=== PATIENT | female | born 1965 | race Caucasian/White ===

== ENCOUNTER 2021-11-18 17:42 | Inpatient (IN) | payer MEDICAID, OTHER ==
[~2021-11-18] VITALS: Ht 167.6 cm; Wt 109.3 kg
[2021-11-18 18:49] LABS: Basophils # (auto) 0 10 ^3/uL (0-0.2); Basophils % (auto) 0.2 % (0.0-2.0); Eosinophils # (auto) 0.3 10 ^3/uL (0-0.8); Eosinophils % (auto) 2.7 % (0.0-7.0); Hemoglobin 13.1 g/dL (12.2-16.2); Lymphocytes % (auto) 33.6 % (10.0-50.0); Mean Corpuscular Hgb Conc. 31.8 g/dL (32.0-36.0); Mean Corpuscular Volume 91.1 fL (80.0-100.0); Monocytes % (auto) 8.5 % (0.0-12.0); Neutrophils # (auto) 6.5 10 ^3/uL (1.6-8.6); Nucleated Red Blood Cells % 0.1 %; Red Blood Cells 4.51 10^6/uL (4.0-5.20); Red Cell Distribution Width 13.9 % (11.8-14.3); White Blood Cell 11.9 10^3/uL (4.4-10.8)
[2021-11-18 18:56] LABS: Albumin 4.1 g/dL (3.4-5.0); BUN/Creatinine Ratio 11.9; Calcium 8.9 mg/dL (8.5-10.1); Magnesium 1.9 mg/dL (1.6-2.6); Potassium 3.6 mmol/L (3.5-5.1)
[2021-11-18 18:59] LABS: Bilirubin, Total 0.2 mg/dL (0.2-1.0); Total Protein 6.8 g/dL (6.4-8.2)
[2021-11-18] MEDS ORDERED: MAGNESIUM SULFATE 1GM/100ML 100 ML IV ONE (21:15)
[2021-11-18] MEDS ORDERED: dilTIAZem 25 MG/5 ML VIAL IV ONE ×2 (21:15→21:30)
[2021-11-18] MEDS ORDERED: dilTIAZem HCL 50 MG/10 ML VIAL IV ONE ×2 (21:30)
[2021-11-18] MEDS ORDERED: MAGNESIUM SULFATE 100 ML IV ONE (22:00)
[2021-11-18] MEDS ORDERED: AMIODARONE HCL 150 MG in D5W 5% 100 ML IV ONE (22:00)
[2021-11-18] MEDS ORDERED: ASPirin 325 MG TAB PO ONE (22:00)
[2021-11-18 22:02] LABS: Urine Bacteria FEW /hpf (None Seen); Urine Blood Negative /uL (Negative); Urine Specific Gravity 1.006 (1.001-1.035); Urine WBC 1 /hpf (0 - 5)
[2021-11-18] MEDS ORDERED: AMIODARONE 450mg/250ml AE 250 ML IV SCH (22:15)
[2021-11-18] MEDS ORDERED: AMIODARONE HCL (50 MG/ ML) 3 ML VIAL IV ONE (22:27)
[2021-11-18] MEDS ORDERED: ADENOSINE 6 MG/2 ML INJ IV ONE (23:04)
[2021-11-18] MEDS ORDERED: ESMOLOL HCL (10MG/ML) 10 ML VIAL IV ONE (23:45)
[2021-11-19] MEDS ORDERED: METOPROLOL TARTRATE 1MG/1ML-5ML VIAL IV ONE (00:30)
[2021-11-19] MEDS ORDERED: SODIUM CHLORIDE 0.9% 1,000 ML IV ONE (00:30)
[2021-11-19] MEDS ORDERED: NITROGLYCERIN 0.4 MG SL TAB SL PRN (02:30)
[2021-11-19] MEDS: SODIUM CHLORIDE 0.9% 1,000 ML IV SCH ×3 (02:30→22:50)
[2021-11-19] MEDS ORDERED: ONDANSETRON HCL 4 MG/2 ML VIAL IV PRN (02:30)
[2021-11-19] MEDS ORDERED: LORazepam 0.5 MG TAB PO PRN (02:30)
[2021-11-19] MEDS ORDERED: hydrALAZINE HCL 10 MG TAB PO PRN (02:30)
[2021-11-19] MEDS ORDERED: ACETAMINOPHEN 325 MG TAB PO PRN (02:30)
[2021-11-19] MEDS ORDERED: ZOLPIDEM TARTRATE 5 MG TAB PO PRN (02:30)
[2021-11-19] MEDS ORDERED: AMIODARONE 450mg/250ml AE 250 ML IV SCH ×3 (04:15→22:15)
[2021-11-19 04:58] LABS: Basophils # (auto) 0.1 10 ^3/uL (0-0.2); Basophils % (auto) 1.2 % (0.0-2.0); Eosinophils # (auto) 0.3 10 ^3/uL (0-0.8); Eosinophils % (auto) 3.9 % (0.0-7.0); Hematocrit 37.4 % (36.0-46.0); Hemoglobin 12.5 g/dL (12.2-16.2); Lymphocytes # (auto) 2.5 10 ^3/uL (0.4-5.4); Lymphocytes % (auto) 33.4 % (10.0-50.0); Mean Corpuscular Hemoglobin 29.7 pg (28.0-32.0); Mean Corpuscular Hgb Conc. 33.4 g/dL (32.0-36.0); Mean Corpuscular Volume 88.8 fL (80.0-100.0); Monocytes # (auto) 0.8 10 ^3/uL (0-1.3); Monocytes % (auto) 10.4 % (0.0-12.0); Neutrophils # (auto) 3.9 10 ^3/uL (1.6-8.6); Neutrophils % (auto) 51.1 % (37.0-80.0); Red Blood Cells 4.21 10^6/uL (4.0-5.20); Red Cell Distribution Width 13.8 % (11.8-14.3); White Blood Cell 7.6 10^3/uL (4.4-10.8)
[2021-11-19 05:17] LABS: Calcium 8.3 mg/dL (8.5-10.1); Magnesium 2.5 mg/dL (1.6-2.6); Potassium 3.8 mmol/L (3.5-5.1)
[2021-11-19 05:21] LABS: BUN/Creatinine Ratio 16.5
[2021-11-19] MEDS ORDERED: FENO160T8 PO (05:25)
[2021-11-19] MEDS ORDERED: METF-370 PO (05:25)
[2021-11-19] MEDS ORDERED: ASPI-543 PO (05:25)
[2021-11-19] MEDS ORDERED: LEVO150T10 PO (05:25)
[2021-11-19] MEDS ORDERED: MELA3TAB27 PO (05:25)
[2021-11-19] MEDS ORDERED: DOCU-80 PO (05:25)
[2021-11-19] MEDS ORDERED: IBUP800T27 PO (05:25)
[2021-11-19] MEDS ORDERED: GABA300C10 PO (05:25)
[2021-11-19] MEDS ORDERED: CHOL20007 OR (05:25)
[2021-11-19] MEDS ORDERED: HYDR-4798 PO (05:25)
[2021-11-19] MEDS ORDERED: ENAL2.5T7 PO (05:25)
[2021-11-19] MEDS ORDERED: BACL10TA PO (05:25)
[2021-11-19] MEDS ORDERED: ICOS1CAP PO (05:25)
[2021-11-19] MEDS ORDERED: ATOR20TA PO (05:25)
[2021-11-19 08:30] VITALS: BP 107/72
[2021-11-19] MEDS: LISINOPRIL 5 MG TAB PO SCH (09:17)
[2021-11-19] MEDS: DOCUSATE SOD 100 MG CAP PO SCH (09:17)
[2021-11-19] MEDS ORDERED: POTASSIUM CHL 20 Meq TABLET PO ONE (09:30)
[2021-11-19] MEDS ORDERED: CLOPIDOGREL BISULFATE 75 MG TAB PO SCH (10:00)
[2021-11-19] MEDS ORDERED: METOPROLOL TARTRATE 25 MG TAB PO SCH (10:00)
[2021-11-19] MEDS ORDERED: AMIODARONE HCL 200 MG TAB PO SCH (10:00)
[2021-11-19] MEDS ORDERED: dilTIAZem HCL 180MG ER CAP PO ONE (10:00)
[2021-11-19] MEDS ORDERED: ASPirin 81 mg TAB PO SCH (10:00)
[2021-11-19] MEDS: ENOXAPARIN SOD 60 MG/0.6 ML SYRINGE SC SCH ×2 (10:28→22:16)
[2021-11-19] MEDS ORDERED: NICOTINE 7MG/24HR TOPICAL PATCH TD SCH (10:45)
[2021-11-19] MEDS ORDERED: MELA1TAB14 PO (11:39)
[2021-11-19] MEDS ORDERED: METF-916 PO (11:39)
[2021-11-19 12:10] LABS: Amphetamine Screen, Urine NEGATIVE (NEGATIVE); Barbiturate Scree,Urine NEGATIVE (NEGATIVE); Benzodiazephine Screen, Urine NEGATIVE (NEGATIVE); Cannabinoid Screen, Urine NEGATIVE (NEGATIVE); Cocaine Screen, Urine NEGATIVE (NEGATIVE); Opiate Scree,Urine NEGATIVE (NEGATIVE); Phencyclidine Screen, Urine NEGATIVE (NEGATIVE)
[2021-11-19 13:16] VITALS: BP 119/85
[2021-11-19] MEDS: NICOTINE 21MG/24 HR TOPICAL PATCH TD SCH (13:50)
[2021-11-19] MEDS ORDERED: AMIODARONE HCL 150 MG in D5W 5% 100 ML IV ONE (16:00)
[2021-11-19 17:10] VITALS: BP 116/82
[2021-11-19 17:38] LABS: INR 0.97 (0.9-1.15); Partial Thromboplastin Time 21.5 sec (24.6-33.4)
[2021-11-19] MEDS ORDERED: MIDAZOLAM HCL 2MG/2ML 2ml VIAL (1mg/ml) IV ONE (18:15)
[2021-11-19] MEDS ORDERED: LIDOCAINE VISCOUS 2% 15ML UD MT ONE (18:15)
[2021-11-19] MEDS ORDERED: MIDAZOLAM HCL 2MG/2ML 2ml VIAL (1mg/ml) ONE (18:52)
[2021-11-19] MEDS ORDERED: fentaNYL CITRATE 100 MCG/2 ML VL ONE (18:52)
[2021-11-19 20:00] VITALS: BP 114/72
[2021-11-19] MEDS ORDERED: ATORVASTATIN 20 MG TAB PO SCH (22:00)
[2021-11-20] MEDS: SODIUM CHLORIDE 0.9% 1,000 ML IV SCH (02:30)
[2021-11-20 05:00] VITALS: BP 130/82
[2021-11-20 08:00] VITALS: BP 102/75
[2021-11-20 09:00] VITALS: BP 116/80
[2021-11-20] MEDS: DOCUSATE SOD 100 MG CAP PO SCH (10:00)
[2021-11-20] MEDS ORDERED: AMIODARONE HCL 200 MG TAB PO SCH (10:00)
[2021-11-20] MEDS ORDERED: APIXABAN 5 MG TAB PO SCH (10:00)
[2021-11-20] MEDS ORDERED: dilTIAZem HCL 180MG ER CAP PO SCH (10:00)
[2021-11-20] MEDS ORDERED: NICOTINE 21MG/24 HR TOPICAL PATCH TD SCH (10:00)
[2021-11-20] MEDS: NICOTINE 21MG/24 HR TOPICAL PATCH TD SCH (10:16)
[2021-11-20] MEDS: LISINOPRIL 5 MG TAB PO SCH (10:16)
[2021-11-20 13:00] VITALS: BP 104/68
[2021-11-20 14:00] VITALS: BP 179/95
[2021-11-20 15:25] VITALS: BP 132/74
[2021-11-20] MEDS ORDERED: ATORVASTATIN 20 MG TAB PO SCH (22:00)
== END 2021-11-20 15:50 | disposition home or self-care (01) | DRG 201 ==
LOC: ER 17:42 → TELE 11-19 02:21 → TELE-CENTR 11-19 06:00
PROVIDERS: ADMIT Hospitalist; ATTEND Internal Medicine Nephrology
PROC: B24BZZ4 Ultrasonography of Heart with Aorta, Transesophageal (ICD-10-PCS; principal; 2021-11-19)
PROC: 5A2204Z Restoration of Cardiac Rhythm, Single (ICD-10-PCS; 2021-11-19)
DX: I48.20 Chronic atrial fibrillation, unspecified (principal); I21.A1 Myocardial infarction type 2; E11.9 Type 2 diabetes mellitus without complications; E03.9 Hypothyroidism, unspecified; E66.9 Obesity, unspecified; E78.5 Hyperlipidemia, unspecified; Z20.822 Contact with and (suspected) exposure to COVID-19; I10 Essential (primary) hypertension; Z79.84 Long term (current) use of oral hypoglycemic drugs; Z88.6 Allergy status to analgesic agent; Z72.0 Tobacco use
CPT/HCPCS: 36415; 71045; 80048; 80053; 80061; 80307; 81001; 83036; 83735; 83880; 84443; 84484; 85025; 85379; 85610; 85730; 86850; 86900; 86901; 92960; 93005; 93306; 93312; 96365; 96367; 96375; 99152; G0378; J0153; J2250; J7060

== ENCOUNTER 2024-08-14 12:27 | Inpatient (IN) | payer MEDICAID ==
[~2024-08-14] VITALS: Ht 167.6 cm; Wt 93.6 kg
[~2024-08-14 12:27] MED LIST: ATOR20TA PO; CHOL20007 OR; CIPR-173 PO; DOCU-80 PO; FENO160T PO; GABA-1250 PO; HYDR-4798 PO; LEVO150T10 PO
[2024-08-14] MEDS: SODIUM CHLORIDE 0.9% 1,000 ML IV ONE (12:45)
--- NOTE | 2024-08-14 12:48 | ED.PDOC ---
History of Present Illness HPI Comments 59-year-old female presents to the ED with a chief complaint of dizziness, SOB, and burning with urination. Patient mentions that she has chronic UTIs and is currently experiencing dizziness with burning upon urination. Patient mentions that she also has chronic lower back pain and is unsure if its a UTI or just back pain. Time Seen by MD: 12:40 Primary Care Provider: ANAMIKA Okeefe Notes: Medications, Allergies Allergies: Coded Allergies: Morphine (Verified Allergy, Unknown, 11/18/21) Home Meds Active Scripts Ciprofloxacin Hcl (Cipro) 500 Mg Tab, 1 TAB PO BID, #14 TAB Prov:ZEN PEREZ MD 06/09/23 Reported Medications Cholecalciferol (VITAMIN D3) 2,000 Unit Tab, 2000 UNIT OR DAILY, TAB 11/19/21 Docusate Sodium (Stool Softener) 100 Mg Cap, 100 MG PO HS, CAP 11/19/21 Hydrocodone-Acetaminophen (Hydrocodone Bitartrate/AC 10-325 mg) 1 Tab Tab, 1 TAB PO TIDP PRN for SEVERE PAIN (7-10 PAIN SCALE), TAB 11/19/21 Levothyroxine Sodium (Levothyroxine Sodium) 150 Mcg Tab, 150 MCG PO QAM for 30 Days 11/19/21 Atorvastatin Calcium (Lipitor) 20 Mg Tab, 1 TAB PO HS, #90 TAB 1 Refill 11/19/21 Fenofibrate (Fenofibrate) 160 Mg Tab, 1 TAB PO DAILY, #30 TAB 5 Refills 11/19/21 Gabapentin (Gabapentin) 300 Mg Cap, 300 MG PO TID for 30 Days, MG 11/19/21 Information Source: Patient Mode of Arrival: Ambulatory Severity: Moderate Timing: Days Duration: Since onset Prehospital treatment: None Past Medical History PAST MEDICAL HISTORY: DM, High Lipids, HTN, Thyroid Surgical History: Hysterectomy ICU RN History: No Pertinent ICU RN History Family History Family History: Reviewed,noncontributory to illness Social History Smoker: Cigarettes Alcohol: Denies ETOH Use Drugs: Marijuana Lives In: Home Constitutional: denies: chills, diaphoresis, fatigue, fever, malaise, sweats, weakness, others EENTM: denies: blurred vision, double vision, ear bleeding, ear discharge, ear drainage, ear pain, ear ringing, eye pain, eye redness, hearing loss, mouth pain, mouth swelling, nasal discharge, nose bleeding, nose congestion, nose pain, photophobia, tearing, throat pain, throat swelling, voice changes, others Respiratory: reports: shortness of breath; denies: cough, hemoptysis, orthopnea, SOB at rest, SOB with excertion, stridor, wheezing, others Cardiovascular: denies: chest pain, dizzy spells, diaphoresis, Dyspnea on exertion, edema, irregular heart beat, left arm pain, lightheadedness, palpitations, PND, syncope, others Gastrointestinal: denies: abdomen distended, abdominal pain, blood streaked bowels, constipated, diarrhea, dysphagia, difficulty swallowing, hematemesis, melena, nausea, poor appetite, poor fluid intake, rectal bleeding, rectal pain, vomiting, others Genitourinary: reports: burning; denies: abnormal vagina bleeding, dyspareunia, dysuria, flank pain, frequency, hematuria, incontinence, pain, , vagina discharge, urgency, others Neurological: reports: dizziness; denies: fainting, headache, left sided numbness, left sided weakness, numbness, paresthesia, pre-existing deficit, right sided numbness, right sided weakness, seizure, speech problems, tingling, tremors, weakness, others Musculoskeletal: denies: back pain, gout, joint pain, joint swelling, muscle pain, muscle stiffness, neck pain, others Integumetry: denies: bruises, change in color, change in hair/nails, dryness, laceration, lesions, lumps, rash, wounds, others Allergic/Immunocompromised: denies: Difficulty Healing, Frequent Infections, Hives, Itching, others Hematologic/Lymphatic: denies: anemia, blood clots, easy bleeding, easy bruising, swollen glands, others Endocrine: denies: excessive hunger, excessive sweating, excessive thirst, excessive urination, flushing, intolerance to cold, intolerance to heat, unexplained weight gain, unexplained weight loss, others Psychiatric: denies: anxiety, bipolar disorder, depression, hopeless, panic disorder, schizophrenia, sleepless, suicidal, others All Other Systems: Reviewed and Negative Physical Exam General Appearance: Moderate Distress HEENT: Normal ENT Inspection, Pharynx Normal, TMs Normal Neck: Full Range of Motion, Non-Tender, Normal, Normal Inspection Respiratory: Chest Non-Tender, Lungs Clear, No Accessory Muscle Use, No Respiratory Distress, Normal Breath Sounds Cardiovascular: No Edema, No JVD, No Murmur, No Gallop, Normal Peripheral Pulses, Regular Rate/Rhythm Breast Exam: Deferred Gastrointestinal: No Organomegaly, Non Tender, No Pulsatile Mass, Normal Bowel Sounds, Soft Genitalia: Deferred Pelvic: Deferred Rectal: Deferred Extremities: No calf tenderness, Normal capillary refill, Normal inspection, Normal range of motion, Non-tender, No pedal edema Musculoskeletal : Location: Bilateral Extremity Location: Back Apperance: Tenderness: Moderate Neurologic: Alert, telecommunication engineer II-XII nml as Tested, Motor Weakness, Normal Affect, Normal Mood, No Sensory Deficits Cerebellar Function: Normal Reflexes: Normal Skin: Dry, Normal Color, Warm Lymphatic: No Adenopathy Was a procedure done? Was a procedure done?: No EKG EKG : Pulse Rate (adult): 61 [place]: LAD Cardiac Rhythm: NSR Hypertrophy: LAE ST: Nonsp Differential Dx Considerations may include: Generalized weakness, UTI, dehydration X-Ray, Labs, Meds, VS Vital Signs Date Time Temp Pulse Resp B/P (MAP) Pulse Ox O2 Delivery O2 Flow Rate FiO2 08/14/24 12:57 61 08/14/24 12:56 61 08/14/24 12:33 98.4 70 18 108/67 (81) 95 98.4 Lab Test 08/14/24 13:02 08/14/24 12:41 Range/Units White Blood Count 12.0 H 4.4-10.8 10^3/uL Red Blood Count 5.01 4.0-5.20 10^6/uL Hemoglobin 12.5 12.2-16.2 g/dL Hematocrit 38.5 36.0-46.0 % Mean Corpuscular Volume 76.8 L 80.0-100.0 fL Mean Corpuscular Hemoglobin 25.0 L 28.0-32.0 pg Mean Corpuscular Hemoglobin Concent 32.5 32.0-36.0 g/dL Red Cell Distribution Width 18.0 H 11.8-14.3 % Platelet Count 384 140-450 10^3/uL Mean Platelet Volume 8.6 6.9-10.8 fL Neutrophils (%) (Auto) 64.7 37.0-80.0 % Lymphocytes (%) (Auto) 21.6 10.0-50.0 % Monocytes (%) (Auto) 11.1 0.0-12.0 % Eosinophils (%) (Auto) 2.2 0.0-7.0 % Basophils (%) (Auto) 0.4 0.0-2.0 % Neutrophils # (Auto) 7.8 1.6-8.6 10 ^3/uL Lymphocytes # (Auto) 2.6 0.4-5.4 10 ^3/uL Monocytes # (Auto) 1.3 0-1.3 10 ^3/uL Eosinophils # (Auto) 0.3 0-0.8 10 ^3/uL Basophils # (Auto) 0 0-0.2 10 ^3/uL Nucleated Red Blood Cells 0.1 % Sodium Level 133 L 136-145 mmol/L Potassium Level 4.5 3.5-5.1 mmol/L Chloride Level 105 98-107 mmol/L Carbon Dioxide Level 22 20-31 mmol/L Anion Gap 6 5-15 Blood Urea Nitrogen 13 9-23 mg/dL Creatinine 1.00 0.550-1.02 mg/dL Glomerular Filtration Rate Calc 64 >90 mL/min BUN/Creatinine Ratio 13.0 10.0-20.0 Serum Glucose 106 74-106 mg/dL Lactic Acid Level 1.5 0.4-2.0 mmol/L Calcium Level 10.2 8.7-10.4 mg/dL Urine Color Yellow Yellow Urine Clarity Turbid H Clear Urine pH 6.5 5.0-9.0 Urine Specific [place] 1.028 1.001-1.035 Urine Protein Trace H Negative Urine Ketones Trace Negative Urine Blood Negative Negative /uL Urine Nitrite Negative Negative Urine Bilirubin Negative Negative Urine Urobilinogen 3 H Negative mg/dL Urine Leukocyte Esterase 1+ Negative /uL Urine RBC 2 0 - 4 /hpf Urine Microscopic WBC 3 0-5 /HPF Urine Squamous Epithelial Cells Few <5 /hpf Urine Bacteria None seen None Seen /hpf Urine Hyaline Casts Mod 0 - 2 /lpf Urine Mucus Few None Seen Urine Glucose Normal Normal mg/dL IV Hep-Lock was established Blood cultures x2 were done The urine test is positive for UTI The lactic acid level was done and it is negative The patient is being admitted at this time The patient was given Rocephin 1 g IV piggyback The patient is still having some pain. The CBC did show an elevated white blood cell count of 12.0 Time of 1ST Reevaluation: 13:10 Reevaluation 1ST: Unchanged Patient Education/Counseling: Diagnosis, Treatment, Prognosis Family Education/Counseling: No Family Present Sepsis Sepsis Reasesment Focused Exam Orders: Laboratory Tests 08/14/24 13:02: Lactic Acid Level 1.5 Departure 1 Departure Time of Disposition: 13:49 Impression: Primary Impression: UTI (urinary tract infection) Qualified Codes: N30.00 - Acute cystitis without hematuria Additional Impression: Generalized weakness Disposition: ADMITTED INPATIENT Admit to: Med Surg Condition: Fair Critical Care Note Critical Care Time?: No Stability Stability form required: Yes Unstable for transfer: ED Physician Assesment (Clinical assesment) Heart Score Heart Score: Heart Score Response (Comments) Value History N/A 0 EKG N/A 0 Age N/A 0 Risk Factors N/A 0 Troponin N/A 0 Total 0 I personally scribed for ZEN PEREZ MD ([email or web address]) on 08/14/24 at 12:48. Electronically submitted by Ayad Mccullough ([email or web address]). ZEN PEREZ MD August 14, 2024 12:48
[2024-08-14 13:28] LABS: Basophils # (auto) 0 10 ^3/uL (0-0.2); Hemoglobin 12.5 g/dL (12.2-16.2); Nucleated Red Blood Cells % 0.1 %
[2024-08-14 13:29] LABS: Basophils % (auto) 0.4 % (0.0-2.0); Eosinophils # (auto) 0.3 10 ^3/uL (0-0.8); Eosinophils % (auto) 2.2 % (0.0-7.0); Hematocrit 38.5 % (36.0-46.0); Lymphocytes # (auto) 2.6 10 ^3/uL (0.4-5.4); Lymphocytes % (auto) 21.6 % (10.0-50.0); Mean Corpuscular Hgb Conc. 32.5 g/dL (32.0-36.0); Mean Corpuscular Volume 76.8 fL (80.0-100.0); Monocytes # (auto) 1.3 10 ^3/uL (0-1.3); Monocytes % (auto) 11.1 % (0.0-12.0); Neutrophils # (auto) 7.8 10 ^3/uL (1.6-8.6); Neutrophils % (auto) 64.7 % (37.0-80.0); Platelet Count (auto) 384 10^3/uL (140-450); Red Blood Cells 5.01 10^6/uL (4.0-5.20)
[2024-08-14 13:29] LABS: Urine Bacteria None Seen /hpf (None Seen)
[2024-08-14 13:35] LABS: Chloride 105 mmol/L (98-107); Potassium 4.5 mmol/L (3.5-5.1)
[2024-08-14 13:36] LABS: Anion Gap 6 (5-15); Carbon Dioxide 22 mmol/L (20-31)
[2024-08-14 13:37] LABS: Calcium 10.2 mg/dL (8.7-10.4); Sodium 133 mmol/L (136-145)
[2024-08-14 13:41] LABS: Glucose 106 mg/dL (74-106)
[2024-08-14 13:42] LABS: Blood Urea Nitrogen 13 mg/dL (9-23)
[2024-08-14 13:44] LABS: Urine Blood Negative /uL (Negative); Urine Clarity Turbid (Clear); Urine Color Yellow (Yellow); Urine Hyaline Cast MOD /lpf (0 - 2); Urine Mucus FEW (None Seen); Urine Protein, UAD TRACE (Negative); Urine Specific Gravity 1.028 (1.001-1.035); Urine Squamous Epithelial Cell FEW /hpf (<5); Urine Urobilinogen 3 mg/dL (Negative); Urine WBC 3 /HPF (0-5); Urine pH 6.5 (5.0-9.0)
[2024-08-14] MEDS ORDERED: ONDANSETRON HCL 4 MG/2 ML VIAL IV PRN (14:45)
[2024-08-14] MEDS: SODIUM CHLORIDE 0.9% 1,000 ML IV SCH (14:45)
[2024-08-14] MEDS ORDERED: DEXTROSE (50%) 50ML SYRG IV PRN (14:45)
--- NOTE | 2024-08-14 15:49 | DVHHP2 ---
History of Present Illness Reason for Visit: Generalized weakness History of Present Illness The patient is a 59-year-old female with past medical history of thyroid disease, hypertension, hyperlipidemia, and diabetes mellitus who presented to [facility] with complaint of dizziness. Patient reports symptoms progressively get worse with shortness of breaths, burning with urination, chronic lower back pain, getting worse today that prompted this visit. Patient was seen and evaluated in the ED, laboratory data shows WBC 4.0, platelets 384, sodium 133, potassium 4.5, BUN 13, creatinine 1.00, glucose 106, calcium 10.2, lactic acid 1.5 urinalysis positive for urinary tract infection. Patient was started on IV antibiotic regimen Rocephin, please see medication orders section in the computer. On my assessment, patient denied chest pain, no headache, no dizziness, no shortness of breaths at this moment, no nausea, no vomiting, no fever, no chills. Patient was admitted for further evaluation and medical management. Past Medical History DM, High Lipids, HTN, Thyroid Past Surgical History Hysterectomy Family History Reviewed, noncontributory to the management of this case. Past Social History The patient lives at home, denies alcohol, smokes cigarettes, uses marijuana. Review of Systems Constitutional: Yes: Weakness; No: Fever, Chills, Sweats, Malaise, Other Eyes: No: Pain, Vision change, Conjunctivae inflammation, Eyelid inflammation, Other, Redness ENT: No: Ear pain, Ear discharge, Nose pain, Nose discharge, Nose congestion, Mouth pain, Mouth swelling, Throat pain, Throat swelling, Other Respiratory: Shortness of breath; No: Cough, Dry, SOB with excertion, Wheezing, Hemoptysis, Pleuritic Pain, Sputum, Wheezing, Other Cardiovascular: No: Chest Pain, Palpitations, Orthopnea, Paroxysmal Noc. Dyspnea, Edema, Lt Headedness, Other Gastrointestinal: No: Nausea, Vomiting, Abdominal Pain, Diarrhea, Constipation, Melena, Hematochezia, Other Genitourinary: Dysuria; No Frequency, No Incontinence, No Hematuria, No Retention; Other (Burning sensation) Musculoskeletal: No: other, neck pain, shoulder pain, arm pain, back pain, hand pain, leg pain, foot pain Skin: No: Rash, Lesions, Jaundice, Bruising, Other Neurological: Other (Dizziness); No: Weakness, Numbness, Incoordination, Change in speech, Confusion, Seizures Allergies: Coded Allergies: Morphine (Verified Allergy, Unknown, 11/18/21) Medications Current Medications Medications Dose Ordered Sig/Kapil Route Start Time Stop Time Status Last Admin Dose Admin Ceftriaxone Sodium 50 ml @ 100 mls/hr DAILY@09 IV 08/15/24 09:00 Atorvastatin Calcium 20 mg HS PO 08/14/24 22:00 Levothyroxine Sodium 150 mcg QAM@0600 PO 08/15/24 06:00 Diagnostic Test (Pha) 1 strip ACHS 08/14/24 17:00 Insulin Human Regular ACHS SC 08/14/24 17:00 Dextrose 50 ml UD PRN IV 08/14/24 14:45 Sodium Chloride 1,000 ml @ 60 mls/hr [id number] IV 08/14/24 14:45 Acetaminophen/ Hydrocodone Bitart 1 tab Q4HP PRN PO 08/14/24 14:45 Ondansetron HCl 4 mg Q4HP PRN IV 08/14/24 14:45 Docusate Sodium 100 mg BIDPRN PRN PO 08/14/24 14:45 Acetaminophen 650 mg Q6HP PRN PO 08/14/24 14:45 Exam Vital Signs Vital Signs Date Time Temp Pulse Resp B/P (MAP) Pulse Ox O2 Delivery O2 Flow Rate FiO2 08/14/24 14:39 98.8 59 18 121/58 (79) 98 98.8 08/14/24 14:39 Room Air General Appearance: Alert, Oriented X3, Cooperative, No acute distress HEENT: Atraumatic, PERRLA, EOMI, Mucous membr. moist/pink Respiratory: Clear to auscultation, Normal air movement Cardiovascular: Regular rate, Normal S1, Normal S2, No murmurs Abdominal: Normal bowel sounds, Soft, No tenderness, No hepatospenomegaly, No masses Extremities: No clubbing, No cyanosis, No edema, Normal pulses, No tenderness /swelling Skin: No rashes, No breakdown, No significant lesion Neuro: Normal speech, Normal tone, Sensation intact, Cranial nerves 3-12 NL, Reflexes 2+, Other (Generalized weakness) Psych/Mental Status: Mental status NL, Mood NL Labs/Xrays Labs Test 08/14/24 13:02 08/14/24 12:41 Range/Units White Blood Count 12.0 H 4.4-10.8 10^3/uL Red Blood Count 5.01 4.0-5.20 10^6/uL Hemoglobin 12.5 12.2-16.2 g/dL Hematocrit 38.5 36.0-46.0 % Mean Corpuscular Volume 76.8 L 80.0-100.0 fL Mean Corpuscular Hemoglobin 25.0 L 28.0-32.0 pg Mean Corpuscular Hemoglobin Concent 32.5 32.0-36.0 g/dL Red Cell Distribution Width 18.0 H 11.8-14.3 % Platelet Count 384 140-450 10^3/uL Mean Platelet Volume 8.6 6.9-10.8 fL Neutrophils (%) (Auto) 64.7 37.0-80.0 % Lymphocytes (%) (Auto) 21.6 10.0-50.0 % Monocytes (%) (Auto) 11.1 0.0-12.0 % Eosinophils (%) (Auto) 2.2 0.0-7.0 % Basophils (%) (Auto) 0.4 0.0-2.0 % Neutrophils # (Auto) 7.8 1.6-8.6 10 ^3/uL Lymphocytes # (Auto) 2.6 0.4-5.4 10 ^3/uL Monocytes # (Auto) 1.3 0-1.3 10 ^3/uL Eosinophils # (Auto) 0.3 0-0.8 10 ^3/uL Basophils # (Auto) 0 0-0.2 10 ^3/uL Nucleated Red Blood Cells 0.1 % Sodium Level 133 L 136-145 mmol/L Potassium Level 4.5 3.5-5.1 mmol/L Chloride Level 105 98-107 mmol/L Carbon Dioxide Level 22 20-31 mmol/L Anion Gap 6 5-15 Blood Urea Nitrogen 13 9-23 mg/dL Creatinine 1.00 0.550-1.02 mg/dL Glomerular Filtration Rate Calc 64 >90 mL/min BUN/Creatinine Ratio 13.0 10.0-20.0 Serum Glucose 106 74-106 mg/dL Lactic Acid Level 1.5 0.4-2.0 mmol/L Calcium Level 10.2 8.7-10.4 mg/dL Thyroid Stimulating Hormone (TSH) 1.76 0.55-4.78 uIU/mL Urine Color Yellow Yellow Urine Clarity Turbid H Clear Urine pH 6.5 5.0-9.0 Urine Specific [place] 1.028 1.001-1.035 Urine Protein Trace H Negative Urine Ketones Trace Negative Urine Blood Negative Negative /uL Urine Nitrite Negative Negative Urine Bilirubin Negative Negative Urine Urobilinogen 3 H Negative mg/dL Urine Leukocyte Esterase 1+ Negative /uL Urine RBC 2 0 - 4 /hpf Urine Microscopic WBC 3 0-5 /HPF Urine Squamous Epithelial Cells Few <5 /hpf Urine Bacteria None seen None Seen /hpf Urine Hyaline Casts Mod 0 - 2 /lpf Urine Mucus Few None Seen Urine Glucose Normal Normal mg/dL Assessment/Plan Assessment/Plan Generalized weakness UTI (urinary tract infection) Acute cystitis without hematuria Leukocytosis, unspecified Plan 1. Admit to telemetry unit 2. Breathing treatment 3. Pain control management 4. IV antibiotic management 5. Management of fluids and electrolytes 6. Consultation for hospitalist 7. Diagnostic test chest x-ray 8. DVT prophylaxis-on aspirin 9. Repeat labs CBC, CMP in a.m. 10. Home medication reviewed and reconciled 11. Continue with current medical management 12. Treatment plan discussed with patient and RN. Patient verbalized unde rstanding. Plan discussed with: Patient, Other (RN) My Orders Orders - MELISSA CASTRO DNP Procedure Category Date Status Time Ceftriaxone 1gm/50ml PHA 08/15/24 In Process D5w (Rocephin) 09:00 Urine Bacterial LARISSA 08/14/24 In Process Culture 14:41 Atorvastatin (Lipitor) PHA 08/14/24 In Process 22:00 Levothyroxine Tablet PHA 08/15/24 In Process (Synthroid Tablet) 06:00 Consistent DIET 08/14/24 Transmitted Carb(Ccho)Diabetes Dinner Glucose Blood PHA 08/14/24 In Process (Accu-Chek Comfort 17:00 Insulin R (Human) PHA 08/14/24 In Process (Insulin R) 17:00 Dextrose 50% Syringe PHA 08/14/24 In Process 14:45 Allergies ASHA 08/14/24 In Process 14:41 Code Status CODE 08/14/24 Transmitted 14:41 Sodium Chloride 0.9% PHA 08/14/24 In Process 14:45 Oxygen Per Hour RT 08/14/24 Transmitted 14:41 Hydrocodone-Acet PHA 08/14/24 In Process 5/325mg Tab ([place] 14:45 Ondansetron Hcl PHA 08/14/24 In Process (Zofran) 14:45 Docusate Sodium PHA 08/14/24 In Process Capsule ([place] 14:45 Fall Risk Precautions [facility] 08/14/[address] 14:41 Complete Blood Count LAB 08/15/24 Verified 04:00 Comprehensive LAB 08/15/24 Verified Metabolic Panel 04:00 Condition: Serious ASHA 08/14/24 In Process 14:41 Acetaminophen Tablet [facility] 08/14/24 In Process (Tylenol Tablet) 14:45 Bedrest With Bathroom [facility] 08/14/24 In Process Privileg 14:41 Sequential [facility] 08/14/24 In Process Compression Device Admit ADMIT 08/14/24 Transmitted 15:47 Nitroglycerin [facility] 08/14/24 Transmitted Sublingual (Ntrostat 16:00 Morphine Sulfate [facility] 08/14/24 Transmitted Injection 16:00 Stat Ekg For Chest [facility] 08/14/24 Transmitted Pain 15:47 Notify Md Of Changes [facility] 08/14/24 Transmitted From Base 15:47 [facility] 08/14/24 Transmitted 24 Hours 15:47 Emergency Dysrhythmia [facility] 08/14/24 Transmitted Protocol 15:47 Rhythm Strips Once [facility] 08/14/24 Transmitted Every Shift 15:47 Oxygen By Nasal 08/14/24 Transmitted Cannula 15:47 Problem List: (1) Generalized weakness (2) UTI (urinary tract infection) (3) Acute cystitis without hematuria (4) Leukocytosis, unspecified Date of Service: August 14, 2024 Billing Provider: MELISSA CASTRO DNP Common Visit Codes: [id number] INP/OBS CARE (HIGH) MELISSA CASTRO DNP August 14, 2024 15:49
[2024-08-14] MEDS ORDERED: NITROGLYCERIN 0.4 MG SL TAB SL PRN (16:00)
[2024-08-14] MEDS ORDERED: MORPHINE SULFATE INJ 2 MG/ml SYRG IV PRN (16:00)
[2024-08-14] MEDS: cefTRIAXone 1GM/50ML D5W 50 ML IV ONE (18:37)
--- NOTE | 2024-08-14 19:00 | ECG ---
[facility] Test Date: 2024-08-14 Test Time: 12:47:28 Pat Name: BENY RAHMAN Department: ED Room: 0284T Gender: F Silk Presser: CHIO : [id number] Requested By: ZEN PEREZ Order Number: [id number] Reading MD: Pablito Martinez Measurements Intervals [place] Rate: 61 P: 50 NV: 148 QRS: -18 QRSD: 101 T: 67 QT: 455 QTc: 459 Interpretive Statements Sinus rhythm Probable left atrial enlargement Borderline left axis deviation Abnormal R-wave progression, early transition Electronically Signed On 08-18-2024 22:05:10 PDT by Pablito Martinez Please click the below link to view image of tracing.
[2024-08-14] MEDS: ACCU-CHEK COMFORT CURVE STRIP VI SCH (19:41)
[2024-08-14] MEDS: InsuLIN REG 1unit/0.01ml Soln (100units/ml) SC SCH (19:42)
[2024-08-14 20:44] VITALS: BP 111/71; PULSE 55; PULSE 66; RESP 15; RESP 18; TEMP 98; O2SAT 94
[2024-08-14 21:00] VITALS: BP 111/71; PULSE 55; RESP 17; TEMP 98.8; O2SAT 94
[2024-08-14] MEDS ORDERED: APIX5TAB PO (21:43)
[2024-08-14] MEDS ORDERED: AMIO200T33 PO (21:47)
[2024-08-14] MEDS ORDERED: DILT60TA PO (21:54)
[2024-08-14] MEDS ORDERED: ROSU5TAB5 PO (21:56)
[2024-08-14] MEDS ORDERED: LISI20TA56 PO (21:57)
[2024-08-14] MEDS ORDERED: CHOL500021 OR (21:58)
[2024-08-14] MEDS ORDERED: MELA10CA OR (21:59)
[2024-08-14] MEDS: HYDROcodone-ACET 5/325MG TAB PO PRN (22:24)
[2024-08-14] MEDS: ATORVASTATIN 20 MG TAB PO SCH (22:27)
[2024-08-15] VITALS (7 sets, daily range): BP systolic 95–143; BP diastolic 45–84; PULSE 52–80; RESP 15–20; TEMP 97.5–98.6; O2SAT 92–97
[2024-08-15] MEDS: ACETAMINOPHEN 325 MG TAB PO PRN (03:04)
[2024-08-15] MEDS: LEVOTHYROXINE SODIUM 50 MCG TAB PO SCH (05:59)
[2024-08-15 06:41] LABS: Basophils # (auto) 0 10 ^3/uL (0-0.2); Basophils % (auto) 0.6 % (0.0-2.0); Eosinophils # (auto) 0.1 10 ^3/uL (0-0.8); Hemoglobin 11.2 g/dL (12.2-16.2); Monocytes # (auto) 0.7 10 ^3/uL (0-1.3); White Blood Cell 7.1 10^3/uL (4.4-10.8)
[2024-08-15 06:43] LABS: Eosinophils % (auto) 1.5 % (0.0-7.0); Hematocrit 34.4 % (36.0-46.0); Lymphocytes # (auto) 1.5 10 ^3/uL (0.4-5.4); Lymphocytes % (auto) 20.8 % (10.0-50.0); Mean Corpuscular Hgb Conc. 32.6 g/dL (32.0-36.0); Mean Corpuscular Volume 76.7 fL (80.0-100.0); Monocytes % (auto) 10.3 % (0.0-12.0); Neutrophils # (auto) 4.7 10 ^3/uL (1.6-8.6); Neutrophils % (auto) 66.8 % (37.0-80.0); Platelet Count (auto) 321 10^3/uL (140-450); Red Blood Cells 4.48 10^6/uL (4.0-5.20); Red Cell Distribution Width 17.7 % (11.8-14.3)
[2024-08-15 06:58] LABS: Alanine Aminotransferase 15 U/L (7-40); Albumin 4.5 g/dL (3.2-4.8); Alkaline Phosphatase 94 U/L (46-116); Anion Gap 7 (5-15); Aspartate Aminotransferase 15 U/L (13-40); BUN/Creatinine Ratio 11.4 (10.0-20.0); Bilirubin, Total 0.4 mg/dL (0.2-1.0); Calcium 9.9 mg/dL (8.7-10.4); Carbon Dioxide 24 mmol/L (20-31); Chloride 104 mmol/L (98-107); Glucose 92 mg/dL (74-106); Potassium 4.1 mmol/L (3.5-5.1); Total Protein 6.7 g/dL (5.7-8.2)
[2024-08-15 07:03] LABS: Blood Urea Nitrogen 9 mg/dL (9-23); Sodium 135 mmol/L (136-145)
[2024-08-15] MEDS: cefTRIAXone 1GM/50ML D5W 50 ML IV SCH (09:09)
[2024-08-15] MEDS: ASPirin 81 mg TAB PO SCH (10:22)
--- NOTE | 2024-08-15 14:09 | DVHPN2 ---
Progress Note Date Seen: August 15, 2024 Medical Necessity Reason Pt with a Central, PICC or Fol: No Subjective Patient reports: No new complaints Review of Systems: HEENT:Normal, CVS:Normal, RESPIRATORY:Normal, GI:Normal, :Normal, MSK:Normal, NEURO:Normal Objective vital signs Vital Sign Date Time Temp Pulse Resp B/P (MAP) Pulse Ox O2 Delivery O2 Flow Rate FiO2 08/15/24 08:08 98.1 65 16 115/58 (77) 95 98.1 08/14/24 20:44 Room Air* 0 21 Total Intake and Output 08/14/24 08/14/24 08/15/24 14:59 22:59 06:59 Intake Total 50 ml 40 ml Output Total 200 ml Balance 50 ml -160 ml medications Current Medications Medications Dose Ordered Sig/Kapil Route Start Time Stop Time Status Last Admin Dose Admin Ceftriaxone Sodium 50 ml @ 100 mls/hr DAILY@09 IV 08/15/24 09:00 08/15/24 09:09 100 MLS/HR Atorvastatin Calcium 20 mg HS PO 08/14/24 22:00 08/14/24 22:27 20 MG Levothyroxine Sodium 150 mcg QAM@0600 PO 08/15/24 06:00 08/15/24 05:59 150 MCG Diagnostic Test (Pha) 1 strip ACHS 08/14/24 17:00 08/15/24 11:30 1 STRIP Insulin Human Regular ACHS SC 08/14/24 17:00 Dextrose 50 ml UD PRN IV 08/14/24 14:45 Sodium Chloride 1,000 ml @ 60 mls/hr [id number] IV 08/14/24 14:45 08/15/24 07:55 60 MLS/HR Acetaminophen/ Hydrocodone Bitart 1 tab Q4HP PRN PO 08/14/24 14:45 08/14/24 22:24 1 TAB Ondansetron HCl 4 mg Q4HP PRN IV 08/14/24 14:45 Docusate Sodium 100 mg BIDPRN PRN PO 08/14/24 14:45 Acetaminophen 650 mg Q6HP PRN PO 08/14/24 14:45 08/15/24 03:04 650 MG Nitroglycerin 0.4 mg Q5MINP PRN SL 08/14/24 16:00 Morphine Sulfate 2 mg Q30M PRN IV 08/14/24 16:00 Hold Aspirin 81 mg DAILY PO 08/15/24 10:00 08/15/24 10:22 81 MG Examination: GENERAL:Normal, HEENT:Normal, NECK:Normal, LUNGS:Normal, CVS:Normal, ABDOMEN:Normal, MSK:Normal, SKIN:Normal, NEURO:Normal, :Normal laboratory and microbiology Laboratory Tests 08/15/24 06:05 Test 08/15/24 06:05 Range/Units Serum Glucose 92 74-106 mg/dL Microbiology Date/Time Source Procedure Growth Status 08/14/24 13:02 Blood Blood Culture - Preliminary NO GROWTH AFTER 24 HOURS OF INCUBATION. Resulted 08/14/24 12:41 Voided Urine Urine Culture - Preliminary Resulted Problem List/Assessment/Plan Problem List/Assessment/Plan #1 uti ?sepsis: culture, iv rocephin #2 a fib with secondary hypercoagulable state: amiodarone, eliquis #3 htn #4 dm: ssi #5 chronic pain #6 hypothyroidism: check tsh #7 obesity #8 hyperlipidemia advance care planning- full code- time spent 18 mins Plan discussed with: Patient My Orders My Orders Orders - CHEO MENDEZ MD Procedure Category Date Status Time Urine Bacterial LARISSA 08/15/24 Verified Culture 14:01 Amiodarone Tablet PHA 08/16/24 Verified (Cordarone Tablet) 10:00 Amiodarone Tablet PHA 08/15/24 Verified (Cordarone Tablet) 14:15 Diltiazem Er Capsule PHA 08/16/24 Verified (Cardizem Er Capsul 10:00 Hydrocodone-Acet PHA 08/15/24 Verified 10/325mg Tab ([place] 14:15 Gabapentin Capsule PHA 08/15/24 Verified (Neurontin Capsule) 22:00 Apixaban (Eliquis) PHA 08/15/24 Verified 22:00 Basic Metabolic Panel LAB 08/16/24 Verified 06:00 Complete Blood Count LAB 08/16/24 Verified 06:00 Thyroid Stimulating LAB 08/16/24 Verified Hormone 05:00 Hemoglobin A1c LAB 08/16/24 Verified 06:00 Date of Service: August 15, 2024 Billing Provider: CHEO MENDEZ MD Common Visit Codes: [id number] INP/OBS CARE(HIGH) Secondary Visit Codes: [id number] CARE PLAN 30 MINUTES CHEO MENDEZ MD August 15, 2024 14:09
[2024-08-15] MEDS: AMIODARONE HCL 200 MG TAB PO ONE (18:52)
[2024-08-15] MEDS: APIXABAN 5 MG TAB PO SCH (21:53)
[2024-08-15] MEDS: MELATONIN 5 MG TAB PO SCH (21:53)
[2024-08-15] MEDS: GABAPENTIN 300 MG CAP PO SCH (21:54)
[2024-08-16] VITALS (8 sets, daily range): BP systolic 112–137; BP diastolic 67–99; PULSE 54–63; RESP 14–18; TEMP 97.5–98.8; O2SAT 94–100
[2024-08-16] MEDS: DOCUSATE SOD 100 MG CAP PO PRN (06:31)
[2024-08-16] MEDS: HYDROcodone-ACET 10/325MG TAB PO PRN (06:33)
[2024-08-16 07:48] LABS: Basophils # (auto) 0.1 10 ^3/uL (0-0.2); Eosinophils # (auto) 0.1 10 ^3/uL (0-0.8); Monocytes % (auto) 11.9 % (0.0-12.0); Red Cell Distribution Width 18.2 % (11.8-14.3)
[2024-08-16 07:52] LABS: Basophils % (auto) 1.2 % (0.0-2.0); Hematocrit 35.9 % (36.0-46.0); Hemoglobin 11.9 g/dL (12.2-16.2); Lymphocytes # (auto) 2.2 10 ^3/uL (0.4-5.4); Lymphocytes % (auto) 26.7 % (10.0-50.0); Mean Corpuscular Hemoglobin 25.4 pg (28.0-32.0); Mean Corpuscular Hgb Conc. 33.1 g/dL (32.0-36.0); Mean Corpuscular Volume 76.7 fL (80.0-100.0); Neutrophils # (auto) 4.8 10 ^3/uL (1.6-8.6); Neutrophils % (auto) 59.2 % (37.0-80.0); Nucleated Red Blood Cells % 0.1 %; Platelet Count (auto) 372 10^3/uL (140-450); Red Blood Cells 4.69 10^6/uL (4.0-5.20); White Blood Cell 8.1 10^3/uL (4.4-10.8)
[2024-08-16 07:55] LABS: Anion Gap 8 (5-15); Carbon Dioxide 23 mmol/L (20-31); Sodium 141 mmol/L (136-145)
[2024-08-16 07:58] LABS: Calcium 10.4 mg/dL (8.7-10.4); Chloride 110 mmol/L (98-107)
[2024-08-16 08:01] LABS: BUN/Creatinine Ratio 13.8 (10.0-20.0); Blood Urea Nitrogen 11 mg/dL (9-23); Glucose 93 mg/dL (74-106)
[2024-08-16] MEDS: dilTIAZem 120MG ER CAP PO SCH (08:32)
[2024-08-16] MEDS: AMIODARONE HCL 200 MG TAB PO SCH (08:33)
--- NOTE | 2024-08-16 13:43 | DVHPN2 ---
Reviewed: Care Plan, H&P, Labs, Medications Changes from previous H/P or p: No Changes General: Per HPI Eyes: No Pain, No Vision change, No Conjunctivae inflammation, No Eyelid inflammation, No Other, No Redness ENT: No Ear pain, No Ear discharge, No Nose pain, No Nose discharge, No Nose congestion, No Mouth pain, No Mouth swelling, No Throat pain, No Throat swelling, No Other Cardiovascular: No Chest Pain, No Palpitations, No Orthopnea, No Paroxysmal Noc. Dyspnea, No Edema, No Lt Headedness, No Other Respiratory: No Cough, No Dry; Shortness of breath; No SOB with excertion, No Wheezing, No Hemoptysis, No Pleuritic Pain, No Sputum, No Other Gastrointestinal: No Nausea, No Vomiting, No Abdominal Pain, No Diarrhea, No Constipation, No Melena, No Hematochezia, No Other Genitourinary: Dysuria; No Frequency, No Incontinence, No Hematuria, No Retention; Other (Burning sensation) Musculoskeletal: No other, No neck pain, No shoulder pain, No arm pain, No back pain, No hand pain, No leg pain, No foot pain Skin: No Rash, No Lesions, No Jaundice, No Bruising, No Other Objective Vitals Vital Signs Date Time Temp Pulse Resp B/P (MAP) Pulse Ox O2 Delivery O2 Flow Rate FiO2 08/16/24 09:00 98.4 59 17 119/67 (84) 94 98.4 08/16/24 08:05 Room Air* 0 21 Intake/Output Intake and Output 08/16/24 07:00 Intake Total 650 ml Balance 650 ml Intake Oral 650 ml # Voids 2 General Appearance: Alert, Oriented X3, Cooperative HEENT: Atraumatic Medications Current Medications Medications Dose Ordered Sig/Kapil Route Start Time Stop Time Status Last Admin Dose Admin Ceftriaxone Sodium 50 ml @ 100 mls/hr DAILY@09 IV 08/15/24 09:00 08/16/24 08:28 100 MLS/HR Atorvastatin Calcium 20 mg HS PO 08/14/24 22:00 08/15/24 21:54 20 MG Levothyroxine Sodium 150 mcg QAM@0600 PO 08/15/24 06:00 08/16/24 06:25 150 MCG Diagnostic Test (Pha) 1 strip ACHS 08/14/24 17:00 08/16/24 11:24 1 STRIP Insulin Human Regular ACHS SC 08/14/24 17:00 Dextrose 50 ml UD PRN IV 08/14/24 14:45 Sodium Chloride 1,000 ml @ 60 mls/hr [id number] IV 08/14/24 14:45 08/16/24 00:05 60 MLS/HR Ondansetron HCl 4 mg Q4HP PRN IV 08/14/24 14:45 Docusate Sodium 100 mg BIDPRN PRN PO 08/14/24 14:45 08/16/24 06:31 100 MG Acetaminophen 650 mg Q6HP PRN PO 08/14/24 14:45 08/15/24 03:04 650 MG Nitroglycerin 0.4 mg Q5MINP PRN SL 08/14/24 16:00 Morphine Sulfate 2 mg Q30M PRN IV 08/14/24 16:00 Hold Amiodarone HCl 200 mg DAILY PO 08/16/24 10:00 08/16/24 08:33 200 MG Diltiazem HCl 120 mg DAILY PO 08/16/24 10:00 08/16/24 08:32 120 MG Acetaminophen/ Hydrocodone Bitart 1 tab Q6HP PRN PO 08/15/24 14:15 08/16/24 06:33 1 TAB Gabapentin 300 mg TID PO 08/15/24 22:00 08/16/24 13:24 300 MG Apixaban 5 mg BID PO 08/15/24 22:00 08/16/24 08:32 5 MG Melatonin 10 mg HS PO 08/15/24 22:00 08/15/24 21:53 10 MG Laboratory Results Laboratory Tests 08/16/24 06:18 Chemistry Test 08/16/24 06:18 Calcium Level 10.4 mg/dL (8.7-10.4) HgA1c, TSH Test 08/16/24 06:18 Hemoglobin A1c 5.8 % A1C (<5.7) H Thyroid Stimulating Hormone (TSH) 0.70 uIU/mL (0.55-4.78) Urinalysis Test 08/14/24 12:41 Urine Color Yellow (Yellow) Urine Clarity Turbid (Clear) H Urine pH 6.5 (5.0-9.0) Urine Specific [place] 1.028 (1.001-1.035) Urine Protein Trace (Negative) H Urine Ketones Trace (Negative) Urine Blood Negative /uL (Negative) Urine Nitrite Negative (Negative) Urine Bilirubin Negative (Negative) Urine Urobilinogen 3 mg/dL (Negative) H Urine Leukocyte Esterase 1+ /uL (Negative) Urine RBC 2 /hpf (0 - 4) Urine Microscopic WBC 3 /HPF (0-5) Urine Squamous Epithelial Cells Few /hpf (<5) Urine Bacteria None seen /hpf (None Seen) Urine Hyaline Casts Mod /lpf (0 - 2) Urine Mucus Few (None Seen) Urine Glucose Normal mg/dL (Normal) Microbiology Microbiology Date/Time Source Procedure Growth Status 08/15/24 14:55 Voided Urine Urine Culture - Preliminary Resulted 08/14/24 13:02 Blood Blood Culture - Preliminary NO GROWTH AFTER 48 HOURS OF INCUBATION. Resulted Labs and/or images reviewed: Labs reviewed by me, Image(s) reviewed by me Assessment/Plan Assessment/Plan The patient is a 59-year-old female with past medical history of thyroid disease, hypertension, hyperlipidemia, and diabetes mellitus who presented to [facility] [place] with complaint of dizziness. Patient reports symptoms progressively get worse with shortness of breaths, burning with urination, chronic lower back pain, getting worse today that prompted this visit. Patient was seen and evaluated in the ED, laboratory data shows WBC 4.0, platelets 384, sodium 133, potassium 4.5, BUN 13, creatinine 1.00, glucose 106, calcium 10.2, lactic acid 1.5 urinalysis positive for urinary tract infection. Patient was started on IV antibiotic regimen Rocephin, please see medication orders section in the computer. On my assessment, patient denied chest pain, no headache, no dizziness, no shortness of breaths at this moment, no nausea, no vomiting, no fever, no chills. Patient was admitted for further evaluation and medical management. #1 uti ?sepsis: culture, iv rocephin #2 a fib with secondary hypercoagulable state: amiodarone, eliquis #3 htn #4 dm: ssi #5 chronic pain #6 hypothyroidism: check tsh #7 obesity #8 hyperlipidemia 08/17/2024: pending urine culture continue with iv abx discussed with pt at bedside Plan discussed with: Patient Date of Service: August 16, 2024 Billing Provider: JAVIER RODRIGUEZ DO Common Visit Codes: [id number] INP/OBS CARE(HIGH) JAVIER RODRIGUEZ DO August 16, 2024 13:43
[2024-08-17 05:00] VITALS: BP 119/63; PULSE 54; RESP 18; TEMP 98.3; O2SAT 94
[2024-08-17 08:00] VITALS: PULSE 52
[2024-08-17 08:44] VITALS: BP 113/67; PULSE 56; RESP 16; TEMP 97.1; O2SAT 96
[2024-08-17] MEDS ORDERED: CEPH250C PO (12:25)
--- NOTE | 2024-08-17 12:26 | DVHDS2 ---
Discharge Summary Date of Admission August 14, 2024 at 15:47 Date of Discharge: August 17, 2024 Labs/Diagnostic Data: Laboratory Results Test 08/17/24 11:47 08/16/24 06:18 08/15/24 06:05 08/14/24 13:02 POC Glucose 101 mg/dl (70-106) White Blood Count 8.1 10^3/uL (4.4-10.8) Red Blood Count 4.69 10^6/uL (4.0-5.20) Hemoglobin 11.9 g/dL (12.2-16.2) Hematocrit 35.9 % (36.0-46.0) Mean Corpuscular Volume 76.7 fL (80.0-100.0) Mean Corpuscular Hemoglobin 25.4 pg (28.0-32.0) Mean Corpuscular Hemoglobin Concent 33.1 g/dL (32.0-36.0) Red Cell Distribution Width 18.2 % (11.8-14.3) Platelet Count 372 10^3/uL (140-450) Mean Platelet Volume 8.7 fL (6.9-10.8) Neutrophils (%) (Auto) 59.2 % (37.0-80.0) Lymphocytes (%) (Auto) 26.7 % (10.0-50.0) Monocytes (%) (Auto) 11.9 % (0.0-12.0) Eosinophils (%) (Auto) 1.0 % (0.0-7.0) Basophils (%) (Auto) 1.2 % (0.0-2.0) Neutrophils # (Auto) 4.8 10 ^3/uL (1.6-8.6) Lymphocytes # (Auto) 2.2 10 ^3/uL (0.4-5.4) Monocytes # (Auto) 1.0 10 ^3/uL (0-1.3) Eosinophils # (Auto) 0.1 10 ^3/uL (0-0.8) Basophils # (Auto) 0.1 10 ^3/uL (0-0.2) Nucleated Red Blood Cells 0.1 % Sodium Level 141 mmol/L (136-145) Potassium Level 4.0 mmol/L (3.5-5.1) Chloride Level 110 mmol/L (98-107) Carbon Dioxide Level 23 mmol/L (20-31) Anion Gap 8 (5-15) Blood Urea Nitrogen 11 mg/dL (9-23) Creatinine 0.80 mg/dL (0.550-1.02) Glomerular Filtration Rate Calc 84 mL/min (>90) BUN/Creatinine Ratio 13.8 (10.0-20.0) Serum Glucose 93 mg/dL (74-106) Hemoglobin A1c 5.8 % A1C (<5.7) Calcium Level 10.4 mg/dL (8.7-10.4) Thyroid Stimulating Hormone (TSH) 0.70 uIU/mL (0.55-4.78) Total Bilirubin 0.4 mg/dL (0.2-1.0) Aspartate Amino Transferase (AST) 15 U/L (13-40) Alanine Aminotransferase (ALT) 15 U/L (7-40) Alkaline Phosphatase 94 U/L (46-116) Total Protein 6.7 g/dL (5.7-8.2) Albumin 4.5 g/dL (3.2-4.8) Lactic Acid Level 1.5 mmol/L (0.4-2.0) Test 08/14/24 12:41 Urine Color Yellow (Yellow) Urine Clarity Turbid (Clear) Urine pH 6.5 (5.0-9.0) Urine Specific [place] 1.028 (1.001-1.035) Urine Protein Trace (Negative) Urine Ketones Trace (Negative) Urine Blood Negative /uL (Negative) Urine Nitrite Negative (Negative) Urine Bilirubin Negative (Negative) Urine Urobilinogen 3 mg/dL (Negative) Urine Leukocyte Esterase 1+ /uL (Negative) Urine RBC 2 /hpf (0 - 4) Urine Microscopic WBC 3 /HPF (0-5) Urine Squamous Epithelial Cells Few /hpf (<5) Urine Bacteria None seen /hpf (None Seen) Urine Hyaline Casts Mod /lpf (0 - 2) Urine Mucus Few (None Seen) Urine Glucose Normal mg/dL (Normal) Other Laboratory Tests 08/16/24 06:18 Brief Hx & Hospital Course: The patient is a 59-year-old female with past medical history of thyroid disease, hypertension, hyperlipidemia, and diabetes mellitus who presented to [facility] with complaint of dizziness. Patient reports symptoms progressively get worse with shortness of breaths, burning with urination, chronic lower back pain, getting worse today that prompted this visit. Patient was seen and evaluated in the ED, laboratory data shows WBC 4.0, platelets 384, sodium 133, potassium 4.5, BUN 13, creatinine 1.00, glucose 106, calcium 10.2, lactic acid 1.5 urinalysis positive for urinary tract infection. Patient was started on IV antibiotic regimen Rocephin, please see medication orders section in the computer. On my assessment, patient denied chest pain, no headache, no dizziness, no shortness of breaths at this moment, no nausea, no vomiting, no fever, no chills. Patient was admitted for further evaluation and medical management. #1 uti ?sepsis: culture, iv rocephin #2 a fib with secondary hypercoagulable state: amiodarone, eliquis #3 htn #4 dm: ssi #5 chronic pain #6 hypothyroidism: check tsh #7 obesity #8 hyperlipidemia 08/17/2024: pending urine culture continue with iv abx discussed with pt at bedside 08/17/2024: discharged to home with further oral abx Condition at Discharge: Fair Final Diagnosis/Problems List see above Discharge Disposition: Home Discharge Instruct/Medications Diet: Cardiac 2g Na,low cholest Activity: No Restrictions, As Tolerated Discharge Statement: "Patient was advised to return to the ER or call 911 if any headaches, dizziness, shortness of breath, chest pain, abdominal pain, bleeding, fevers, or worsening of medical condition. Patient was counseled about treatment plan, medications, possible side effects, patientverbalized understanding. All questions were answered to the best of my ability. This discharge took greater then 30 minutes in planning, reviewing documentation, counseling the patient, and discussing with other team members." ASSESSMENT ASSESSMENT Assessment Date of Service: August 17, 2024 Billing Provider: JAVIER RODRIGUEZ DO Common Visit Codes: [id number] DISCH DAY >30min JAVIER RODRIGUEZ DO August 17, 2024 12:26
[2024-08-17 13:25] VITALS: BP 129/86; PULSE 70; RESP 16; TEMP 97.1; O2SAT 98
[2024-08-17 15:31] VITALS: BP 113/67; PULSE 62; TEMP 36.2
== END 2024-08-17 16:30 | disposition home or self-care (01) | DRG 463 ==
LOC: ER 12:31 → OVERFLOW 15:47 → TELE-WESTW 08-15 18:19
PROVIDERS: ADMIT Internal Medicine; ATTEND Internal Medicine
DX: N30.00 Acute cystitis without hematuria (principal); D68.69 Other thrombophilia; E03.9 Hypothyroidism, unspecified; E11.9 Type 2 diabetes mellitus without complications; I10 Essential (primary) hypertension; Z68.32 Body mass index [BMI] 32.0-32.9, adult; E66.9 Obesity, unspecified; E78.5 Hyperlipidemia, unspecified; F17.210 Nicotine dependence, cigarettes, uncomplicated; G89.29 Other chronic pain; I48.91 Unspecified atrial fibrillation; Z87.440 Personal history of urinary (tract) infections; Z90.710 Acquired absence of both cervix and uterus; Z88.5 Allergy status to narcotic agent
CPT/HCPCS: 36415; 80048; 80053; 81001; 82962; 83036; 83605; 84443; 85025; 87040; 87086; 93005; G0378

== ENCOUNTER 2024-11-08 10:34 | Inpatient (IN) | payer MEDICAID ==
[~2024-11-08] VITALS: Ht 167.6 cm; Wt 86.4 kg
[~2024-11-08 10:34] MED LIST changes: +AMIO200T33 PO; +APIX5TAB PO; +CEPH250C PO; +CHOL500021 OR; +DILT60TA PO; +LISI20TA56 PO; +MELA10CA OR; +ROSU5TAB5 PO
[2024-11-08] MEDS: CEFEPIME 2GM/50ML NS 50 ML IV ONE (11:15)
[2024-11-08] MEDS ORDERED: HYDROmorphone HCL 2 MG/ML VL/or syr IV ONE (11:15)
--- NOTE | 2024-11-08 11:29 | ED.PDOC ---
GI ASSESSMENT HPI Comments 59 year old female with a PMHx of AFib, chronic reoccurring UTIs, DM, HTN, and thyroid disease,presents to the ED for a chief complaint of left upper flank pain. Patient described pain as a "pulsating/pounding" sensation, which spontaneously presented onset and is non-radiating, and was accompanied by nausea, vomiting, and diarrhea. The patient denied any recent heavy lifting, twisting, bloody stool, hematuria, dysuria, fever, or chills. She reported her most recent UTI diagnosis was in July of 2024, which required admission to the hospital for IV antibiotic treatment, and further noted that Bactrim and Cipro had been ineffective for her UTIs in the past. Additionally, the patient reported chronic Percocet use due to a history of back pain. Chief Complaint: Abdominal Pain Time Seen by MD: 10:27 Primary Care Provider: ROE Reviewed Notes: Nurses Notes, Medications, Allergies Allergies: Coded Allergies: Morphine (Verified Allergy, Unknown, 11/18/21) Home Meds Active Scripts Cephalexin (KEFLEX CAPSULE) 250 Mg Cp, 2 CAP PO BID for 5 Days, #20 CAP Prov:JAVIER RODRIGUEZ DO 08/17/24 Ciprofloxacin Hcl (Cipro) 500 Mg Tab, 1 TAB PO BID, #14 TAB Prov:ZEN PEREZ MD 06/09/23 Reported Medications Melatonin (MELATONIN) 10 Mg Cap, 10 MG OR, CAP 08/14/24 Cholecalciferol (VITAMIN D) 5,000 Unit Tab, 1000 UNIT OR DAILY, TAB 08/14/24 Lisinopril (Lisinopril) 20 Mg Tab, 20 MG PO DAILY for 30 Days, MG 08/14/24 Rosuvastatin Calcium (Crestor) 5 Mg Tab, 1 TAB PO DAILY, #30 TAB 5 Refills 08/14/24 Diltiazem Hcl (Diltiazem Hcl) 60 Mg Tab, 120 MG PO DAILY for 30 Days, MG 08/14/24 Amiodarone Hcl (Amiodarone Hcl) 200 Mg Tab, 200 MG PO DAILY for 30 Days 08/14/24 Apixaban Base (ELIQUIS) 5 Mg Tab, 5 MG PO BID, TAB 08/14/24 Cholecalciferol (VITAMIN D3) 2,000 Unit Tab, 2000 UNIT OR DAILY, TAB 11/19/21 Docusate Sodium (Stool Softener) 100 Mg Cap, 100 MG PO HS, CAP 11/19/21 Hydrocodone-Acetaminophen (Hydrocodone Bitartrate/AC 10-325 mg) 1 Tab Tab, 1 TAB PO TIDP PRN for SEVERE PAIN (7-10 PAIN SCALE), TAB 11/19/21 Levothyroxine Sodium (Levothyroxine Sodium) 150 Mcg Tab, 150 MCG PO QAM for 30 Days 11/19/21 Atorvastatin Calcium (Lipitor) 20 Mg Tab, 1 TAB PO HS, #90 TAB 1 Refill 11/19/21 Fenofibrate (Fenofibrate) 160 Mg Tab, 1 TAB PO DAILY, #30 TAB 5 Refills 11/19/21 Gabapentin (Gabapentin) 300 Mg Cap, 300 MG PO TID for 30 Days, MG 11/19/21 Information Source: Patient Mode of Arrival: Ambulatory Timing: Days (1) Duration: Since onset Quality: Sharp Vomitus: Bilious Stool: Loose Severity: Moderate Recent: None Recent Hx of: None Pain Location: LUQ, LLQ Modifying Factors: Nothing Associated sign and symptoms: Nausea, Vomiting, Diarrhea, Abdominal Pain Past Medical History PAST MEDICAL HISTORY: AFIB, DM, High Lipids, HTN, Thyroid, UTI'S Surgical History: Hysterectomy 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 Family History Family History: Reviewed,noncontributory to illness Social History Smoker: Cigarettes Alcohol: Denies ETOH Use Drugs: Marijuana Lives In: Home Constitutional: denies: chills, diaphoresis, fatigue, fever, malaise, sweats, weakness, others EENTM: denies: blurred vision, double vision, ear bleeding, ear discharge, ear drainage, ear pain, ear ringing, eye pain, eye redness, hearing loss, mouth pain, mouth swelling, nasal discharge, nose bleeding, nose congestion, nose pain, photophobia, tearing, throat pain, throat swelling, voice changes, others Respiratory: denies: cough, hemoptysis, orthopnea, SOB at rest, shortness of breath, SOB with excertion, stridor, wheezing, others Cardiovascular: denies: chest pain, dizzy spells, diaphoresis, Dyspnea on exertion, edema, irregular heart beat, left arm pain, lightheadedness, palpitat ions, PND, syncope, others Gastrointestinal: reports: abdominal pain, diarrhea, nausea, vomiting; denies: abdomen distended, blood streaked bowels, constipated, dysphagia, difficulty swallowing, hematemesis, melena, poor appetite, poor fluid intake, rectal bleeding, rectal pain, others Genitourinary: denies: abnormal vagina bleeding, burning, dyspareunia, dysuria, flank pain, frequency, hematuria, incontinence, pain, , vagina discharge, urgency, others Neurological: denies: dizziness, fainting, headache, left sided numbness, left sided weakness, numbness, paresthesia, pre-existing deficit, right sided n umbness, right sided weakness, seizure, speech problems, tingling, tremors, weakness, others Musculoskeletal: denies: back pain, gout, joint pain, joint swelling, muscle pain, muscle stiffness, neck pain, others Integumetry: denies: bruises, change in color, change in hair/nails, dryness, laceration, lesions, lumps, rash, wounds, others Hematologic/Lymphatic: denies: anemia, blood clots, easy bleeding, easy bruising, swollen glands, others Endocrine: denies: excessive hunger, excessive sweating, excessive thirst, excessive urination, flushing, intolerance to cold, intolerance to heat, unexplained weight gain, unexplained weight loss, others Psychiatric: denies: anxiety, bipolar disorder, depression, hopeless, panic disorder, schizophrenia, sleepless, suicidal, others All Other Systems: Reviewed and Negative Physical Exam General Appearance: No Apparent Distress, Obese HEENT: Other (Pupils and face symmetric. Moist mucous membranes.) Neck: Full Range of Motion, Normal Inspection Respiratory: Lungs Clear, No Accessory Muscle Use, No Respiratory Distress, Normal Breath Sounds Cardiovascular: No Edema, No JVD, Regular Rate/Rhythm Breast Exam: Deferred Gastrointestinal: Soft, Tenderness (Left upper flank) Genitalia: Deferred Pelvic: Deferred Rectal: Deferred Extremities: Normal inspection, Normal range of motion, Non-tender, No pedal edema Neurologic: Alert (Oriented x4), Normal Affect, Normal Mood, Other (Ambulatory) Cerebellar Function: NOT DONE Reflexes: NOT DONE Skin: Dry, Normal Color, Warm Lymphatic: NOT DONE EKG EKG : Comments Sinus rhythm, rate 58, normal AR and QRS intervals, QTC prolonged at 581, normal axis, lateral T-wave inversion with inferior T-wave flattening and other nonspecific T changes Was a procedure done? Was a procedure done?: No GI differential Dx Differential Diagnosis: Diverticular disease, Gastritis/PUD, Gastroenteritis, Inflammatory BD, Ischemic Bowel, Pancreatitis, UTI, Urolithiasis, Dehydration, Electrolyte Imbalance, Food Poisoning, Bacterial, Viral, Hypovolemia, Renal Failure, Stress Ulcer, Kidney Stone X-Ray, Labs, Meds, VS Vital Signs Date Time Temp Pulse Resp B/P (MAP) Pulse Ox O2 Delivery O2 Flow Rate FiO2 11/08/24 10:49 58 11/08/24 10:40 98.2 66 18 123/66 97 98.2 Lab Test 11/08/24 13:12 11/08/24 11:29 11/08/24 11:26 Range/Units Troponin I High Sensitivity < 3 L 3 L </=34 ng/L White Blood Count 8.3 4.4-10.8 10^3/uL Red Blood Count 4.82 4.0-5.20 10^6/uL Hemoglobin 12.4 12.2-16.2 g/dL Hematocrit 38.9 36.0-46.0 % Mean Corpuscular Volume 80.7 80.0-100.0 fL Mean Corpuscular Hemoglobin 25.8 L 28.0-32.0 pg Mean Corpuscular Hemoglobin Concent 32.0 32.0-36.0 g/dL Red Cell Distribution Width 18.0 H 11.8-14.3 % Platelet Count 387 140-450 10^3/uL Mean Platelet Volume 8.4 6.9-10.8 fL Neutrophils (%) (Auto) 64.9 37.0-80.0 % Lymphocytes (%) (Auto) 23.9 10.0-50.0 % Monocytes (%) (Auto) 8.5 0.0-12.0 % Eosinophils (%) (Auto) 1.6 0.0-7.0 % Basophils (%) (Auto) 1.1 0.0-2.0 % Neutrophils # (Auto) 5.4 1.6-8.6 10 ^3/uL Lymphocytes # (Auto) 2.0 0.4-5.4 10 ^3/uL Monocytes # (Auto) 0.7 0-1.3 10 ^3/uL Eosinophils # (Auto) 0.1 0-0.8 10 ^3/uL Basophils # (Auto) 0.1 0-0.2 10 ^3/uL Nucleated Red Blood Cells 0.0 % Sodium Level 135 L 136-145 mmol/L Potassium Level 3.9 3.5-5.1 mmol/L Chloride Level 104 98-107 mmol/L Carbon Dioxide Level 25 20-31 mmol/L Anion Gap 6 5-15 Blood Urea Nitrogen 6 L 9-23 mg/dL Creatinine 0.83 0.550-1.02 mg/dL Glomerular Filtration Rate Calc 80 >90 mL/min BUN/Creatinine Ratio 7.2 L 10.0-20.0 Serum Glucose 88 74-106 mg/dL Lactic Acid Level 0.7 0.4-2.0 mmol/L Calcium Level 9.5 8.7-10.4 mg/dL Total Bilirubin 0.3 0.2-1.0 mg/dL Aspartate Amino Transferase (AST) 18 13-40 U/L Alanine Aminotransferase (ALT) 11 7-40 U/L Alkaline Phosphatase 75 46-116 U/L Total Protein 7.4 5.7-8.2 g/dL Albumin 4.8 3.2-4.8 g/dL Lipase 34 12-53 U/L Urine Color Light-yellow Yellow Urine Clarity Clear Clear Urine pH 6.5 5.0-9.0 Urine Specific [place] 1.008 1.001-1.035 Urine Protein Negative Negative Urine Ketones Negative Negative Urine Blood Negative Negative /uL Urine Nitrite Negative Negative Urine Bilirubin Negative Negative Urine Urobilinogen Normal Negative mg/dL Urine Leukocyte Esterase Trace Negative /uL Urine RBC None seen 0 - 4 /hpf Urine Microscopic WBC 1 0-5 /HPF Urine Squamous Epithelial Cells Few <5 /hpf Urine Bacteria Few H None Seen /hpf Urine Glucose Normal Normal mg/dL PROCEDURE(s): ABPL - CT AB PEL WO CON-NO ORAL OR IV REASON: L flank pain dysuria ORDER NUMBER(s): [id number], ACCESSION NUMBER(s): [id number] Indication: L flank pain dysuria Technique: CT axial images of the abdomen and pelvis are obtained without contrast. Coronal and sagittal reformats were obtained. Radiation Dose Information: CTDI volume is 19.21 mGy. Dose-length product is 1010 mGy*cm Comparison: ID on DOS: 11/19/21 FINDINGS: There is limited interpretation of the abdomen and pelvis without administration of intravenous contrast. Bibasilar atelectasis. Coronary artery calcification disease. Adrenal glands demonstrate mild limb thickening. Spleen, pancreas and liver unremarkable in shape. Possible cholelithiasis/sludge. Kidneys demonstrate no hydronephrosis, nephrolithiasis. Stomach is partially distended. Small bowel loops normal in caliber. Bowel wall thickening transverse colon. Normal appendix. Abdominal aortic atherosclerotic disease. Bladder partially distended. No free pelvic fluid. No inguinal lymphadenopathy. Facj-up-bjzrglis bilateral sacroiliac degenerative joint disease. Moderate to advanced thoracolumbar degenerative disc disease most pronounced at L5-S1. IMPRESSION: Limited evaluation without contrast. No evidence for hydronephrosis/nephrolithiasis. Bowel wall thickening transverse colon could represent colitis, inflammatory disease. Adrenal gland limb thickening which can be secondary to hyperplasia. Atherosclerotic / coronary artery calcification disease. Gall bladder hyperdensity which could represent sludge, cholelithiasis. Other findings as described. X-Ray, Labs, Meds, VS Comment 59 year old female with a PMHx of AFib, chronic reoccurring UTIs, DM, HTN, and thyroid disease,presents to the ED for a chief complaint of left upper flank pain. Vitals unremarkable Exam remarkable for left upper flank tenderness to palpation Rhythm strip independently interpreted by me: Sinus rhythm, rate 58, no ectopy. CT abdomen and pelvis IMPRESSION: Limited evaluation without contrast. No evidence for hydronephrosis/nephrolithiasis. Bowel wall thickening transverse colon could represent colitis, inflammatory disease. Adrenal gland limb thickening which can be secondary to hyperplasia. Atherosclerotic / coronary artery calcification disease. Gall bladder hyperdensity which could represent sludge, cholelithiasis. CBC remarkable, metabolic panel remarkable for sodium 135, lipase normal, UA trace leukocyte esterase and few bacteria possibly indicating mild UTI, troponin negative, lactate normal Patient treated with the following in the ED: 2 L 0.9 normal saline IV bolus, Dilaudid 1 mg IV, Zofran 4 mg IV, cefepime 2 g IV, Flagyl 500 mg IV On re-evaluation, pain has improved. Vitals were stable. Patient was recently admitted and treated with IV antibiotics for UTI, so is at risk for C diff. Plan is to admit the patient for pain control and IV antibiotics Time of 1ST Reevaluation: 11:29 Reevaluation 1ST: Unchanged Patient Education/Counseling: Diagnosis, Treatment, Prognosis Family Education/Counseling: No Family Present SEPSIS Sepsis Screen Date sepsis recognized/suspect: Nov 08, 2024 Time Sepsis recognized/suspect: 1041 Recent Procedure: No On Antibiotic Therapy: No Respiratory Rate >20: No Heart Rate >90: No Temp<36 C (96.8 F) or >38.3 C: No SBP <90 or MAP <65 mmHG: No New Acute Mental Status Change: No Is the patient on CPAP, BIPAP,: No Physician Orders Electrocardigram (11/08/24 10:39) Troponin-I Hs (11/08/24 15:00) Ct Ab Pel Wo Con-No Oral Or Iv (11/08/24 11:10) Blood Culture (11/08/24 11:10) Cefepime 2gm/50ml Ns (Maxipime 2gm/50ml) (11/08/24 11:15) Clostridium Difficile Toxin (11/08/24 11:57) Vital Signs Date Time Temp Pulse Resp B/P (MAP) Pulse Ox O2 Delivery O2 Flow Rate FiO2 11/08/24 10:49 58 11/08/24 10:40 98.2 66 18 123/66 97 98.2 Laboratory Tests Test 11/08/24 11:29 Lactic Acid Level 0.7 mmol/L (0.4-2.0) White Blood Count 8.3 10^3/uL (4.4-10.8) Departure 1 Departure Time of Disposition: 11:56 Impression: Primary Impression: Colitis Additional Impression: UTI (urinary tract infection) Disposition: ADMITTED INPATIENT Admit to: Med Surg Condition: Guarded Critical Care Note Critical Care Time?: No Stability Stability form required: No Heart Score Heart Score: Heart Score Response (Comments) Value History N/A 0 EKG N/A 0 Age N/A 0 Risk Factors N/A 0 Troponin N/A 0 Total 0 I personally scribed for THOMAS OROZCO MD ([facility]) on 11/08/24 at 11:29. Electronically submitted by Rubi Porras ([facility]). I personally scribed for THOMAS OROZCO MD ([facility] on 11/08/24 at 11:37. Electronically submitted by Rubi Porras ([facility]). THOMAS OROZCO MD Nov 08, 2024 11:29
--- NOTE | 2024-11-08 11:44 | DVH ---
Indication: L flank pain dysuria Technique: CT axial images of the abdomen and pelvis are obtained without contrast. Coronal and sagit lashawn reformats were obtained. Radiation Dose Information: CTDI volume is 19.21 mGy. Dose-length product is 1010 mGy*cm Comparison: [facility] on DOS: 11/19/21 FINDINGS: There is limited interpretation of the abdomen and pelvis without administration of intravenous contr ast. Bibasilar atelectasis. Coronary artery calcification disease. Adrenal glands demonstrate mild limb thickening. Spleen, pancreas and liver unremarkable in shape. P ossible cholelithiasis/sludge. Kidneys demonstrate no hydronephrosis, nephrolithiasis. Stomach is partially distended. Small bowel loops normal in caliber. Bowel wall thickening transverse colon. Normal appendix. Abdominal aortic atherosclerotic disease. Bladder partially distended. No free pelvic fluid. No ingui nal lymphadenopathy. [id number] bilateral sacroiliac degenerative joint disease. Moderate to advanced thoracolumbar degenerative disc disease most pronounced at L5-S1. IMPRESSION: Limited evaluation without contrast. No evidence for hydronephrosis/nephrolithiasis. Bowel wall thickening transverse colon could represent colitis, inflammatory disease. Adrenal gland limb thickening which can be secondary to hyperplasia. Atherosclerotic / coronary artery calcification disease. Gall bladder hyperdensity which could represent sludge, cholelithiasis. Other findings as described.
[2024-11-08 11:54] LABS: Nucleated Red Blood Cells % 0.0 %
[2024-11-08 11:56] LABS: Hematocrit 38.9 % (36.0-46.0); Hemoglobin 12.4 g/dL (12.2-16.2); Mean Corpuscular Hemoglobin 25.8 pg (28.0-32.0); Mean Corpuscular Volume 80.7 fL (80.0-100.0)
[2024-11-08 12:06] LABS: Alanine Aminotransferase 11 U/L (7-40); Albumin 4.8 g/dL (3.2-4.8); Alkaline Phosphatase 75 U/L (46-116); Anion Gap 6 (5-15); BUN/Creatinine Ratio 7.2 (10.0-20.0); Bilirubin, Total 0.3 mg/dL (0.2-1.0); Calcium 9.5 mg/dL (8.7-10.4); Carbon Dioxide 25 mmol/L (20-31); Chloride 104 mmol/L (98-107); Glucose 88 mg/dL (74-106); Lipase 34 U/L (12-53); Potassium 3.9 mmol/L (3.5-5.1); Total Protein 7.4 g/dL (5.7-8.2)
[2024-11-08 12:15] LABS: Blood Urea Nitrogen 6 mg/dL (9-23); Sodium 135 mmol/L (136-145)
[2024-11-08 14:59] LABS: Urine Protein, UAD Negative (Negative)
[2024-11-08] MEDS ORDERED: ACETAMINOPHEN 325 MG TAB PO PRN (16:15)
[2024-11-08] MEDS ORDERED: LINA145C PO (16:19)
--- NOTE | 2024-11-08 16:39 | DVHHP2 ---
History of Present Illness Reason for Visit: Left-sided flank pain History of Present Illness Charline Morgan is a 59-year-old female with past medical history of AFib, diabetes, hyperlipidemia, hypertension, thyroid disease, UTIs, hysterectomy, bilateral carpal tunnel, trigger fingers, and bilateral wrist surgery who pre sents to the ED with left upper flank pain with nausea and vomiting. She reports that it started yesterday at 11:00 a.m. and states that the pain is 7/10 throbbing and constant. She states that there are no triggering or alleviating factors. She denies any recent trauma or injury, recent sick contacts, recent travels, recent ingestion of spoiled food, fever, chills, lightheadedness, weakness, dizziness, diarrhea, urinary symptoms, chest pain, or shortness of breath. Patient reports that she is compliant with her medications. Cardiovascular: AFIB, HTN, hyperipidemia Renal/: UTI Endocrine: Diabetes, Hypothyroidism Past Medical History Bilateral carpal tunnel Trigger fingers Past Surgical History: Hysterectomy, Other (Bilateral wrist surgery) Family History: None Smoke: <1 pack per day ALCOHOL: none Drugs: None Lives: Alone Domestic Violence: Neg Review of Systems Gastrointestinal: Other (Left-sided flank pain) Allergies: Coded Allergies: Morphine (Verified Allergy, Unknown, 11/18/21) Medications Current Medications Medications Dose Ordered Sig/K[place]il Route Start Time Stop Time Status Last Admin Dose Admin Acetaminophen/ Hydrocodone Bitart 1 tab Q4HP PRN PO 11/08/24 16:15 UNV Ondansetron HCl 4 mg Q4HP PRN IV 11/08/24 16:15 UNV Acetaminophen 650 mg Q6HP PRN PO 11/08/24 16:15 UNV Metronidazole 100 ml @ 100 mls/hr Q8HR IV 11/08/24 22:00 UNV Exam Vital Signs Vital Signs Date Time Temp Pulse Resp B/P (MAP) Pulse Ox O2 Delivery O2 Flow Rate FiO2 11/08/24 10:49 58 11/08/24 10:40 98.2 18 123/66 97 98.2 General Appearance: Alert, Oriented X3, Cooperative, No acute distress HEENT: Atraumatic, PERRLA, EOMI, Mucous membr. moist/pink Respiratory: Normal air movement Cardiovascular: Regular rate, Normal S1, Normal S2 Abdominal: Normal bowel sounds, Soft Extremities: No cyanosis, No edema, Normal pulses Skin: No significant lesion Neuro: Normal gait, Normal speech, Strength at 5/5 X4 ext, Normal tone, Sensation intact Psych/Mental Status: Mental status NL, Mood NL Labs/Xrays Labs Test 11/08/24 13:12 11/08/24 11:29 11/08/24 11:26 Range/Units Troponin I High Sensitivity < 3 L </=34 ng/L White Blood Count 8.3 4.4-10.8 10^3/uL Red Blood Count 4.82 4.0-5.20 10^6/uL Hemoglobin 12.4 12.2-16.2 g/dL Hematocrit 38.9 36.0-46.0 % Mean Corpuscular Volume 80.7 80.0-100.0 fL Mean Corpuscular Hemoglobin 25.8 L 28.0-32.0 pg Mean Corpuscular Hemoglobin Concent 32.0 32.0-36.0 g/dL Red Cell Distribution Width 18.0 H 11.8-14.3 % Platelet Count 387 140-450 10^3/uL Mean Platelet Volume 8.4 6.9-10.8 fL Neutrophils (%) (Auto) 64.9 37.0-80.0 % Lymphocytes (%) (Auto) 23.9 10.0-50.0 % Monocytes (%) (Auto) 8.5 0.0-12.0 % Eosinophils (%) (Auto) 1.6 0.0-7.0 % Basophils (%) (Auto) 1.1 0.0-2.0 % Neutrophils # (Auto) 5.4 1.6-8.6 10 ^3/uL Lymphocytes # (Auto) 2.0 0.4-5.4 10 ^3/uL Monocytes # (Auto) 0.7 0-1.3 10 ^3/uL Eosinophils # (Auto) 0.1 0-0.8 10 ^3/uL Basophils # (Auto) 0.1 0-0.2 10 ^3/uL Nucleated Red Blood Cells 0.0 % Sodium Level 135 L 136-145 mmol/L Potassium Level 3.9 3.5-5.1 mmol/L Chloride Level 104 98-107 mmol/L Carbon Dioxide Level 25 20-31 mmol/L Anion Gap 6 5-15 Blood Urea Nitrogen 6 L 9-23 mg/dL Creatinine 0.83 0.550-1.02 mg/dL Glomerular Filtration Rate Calc 80 >90 mL/min BUN/Creatinine Ratio 7.2 L 10.0-20.0 Serum Glucose 88 74-106 mg/dL Lactic Acid Level 0.7 0.4-2.0 mmol/L Calcium Level 9.5 8.7-10.4 mg/dL Total Bilirubin 0.3 0.2-1.0 mg/dL Aspartate Amino Transferase (AST) 18 13-40 U/L Alanine Aminotransferase (ALT) 11 7-40 U/L Alkaline Phosphatase 75 46-116 U/L Total Protein 7.4 5.7-8.2 g/dL Albumin 4.8 3.2-4.8 g/dL Lipase 34 12-53 U/L Urine Color Light-yellow Yellow Urine Clarity Clear Clear Urine pH 6.5 5.0-9.0 Urine Specific [place] 1.008 1.001-1.035 Urine Protein Negative Negative Urine Ketones Negative Negative Urine Blood Negative Negative /uL Urine Nitrite Negative Negative Urine Bilirubin Negative Negative Urine Urobilinogen Normal Negative mg/dL Urine Leukocyte Esterase Trace Negative /uL Urine RBC None seen 0 - 4 /hpf Urine Microscopic WBC 1 0-5 /HPF Urine Squamous Epithelial Cells Few <5 /hpf Urine Bacteria Few H None Seen /hpf Urine Glucose Normal Normal mg/dL Indication: L flank pain dysuria Technique: CT axial images of the abdomen and pelvis are obtained without contrast. Coronal and sagittal reformats were obtained. Radiation Dose Information: CTDI volume is 19.21 mGy. Dose-length product is 1010 mGy*cm Comparison: [facility] on DOS: 11/19/21 FINDINGS: There is limited interpretation of the abdomen and pelvis without administration of intravenous contrast. Bibasilar atelectasis. Coronary artery calcification disease. Adrenal glands demonstrate mild limb thickening. Spleen, pancreas and liver unremarkable in shape. Possible cholelithiasis/sludge. Kidneys demonstrate no hydronephrosis, nephrolithiasis. Stomach is partially distended. Small bowel loops normal in caliber. Bowel wall thickening transverse colon. Normal appendix. Abdominal aortic atherosclerotic disease. Bladder partially distended. No free pelvic fluid. No inguinal lymphadenopathy. [id number]-[id number] bilateral sacroiliac degenerative joint disease. Moderate to advanced thoracolumbar degenerative disc disease most pronounced at L5-S1. IMPRESSION: Limited evaluation without contrast. No evidence for hydronephrosis/nephrolithiasis. Bowel wall thickening transverse colon could represent colitis, inflammatory disease. Adrenal gland limb thickening which can be secondary to hyperplasia. Atherosclerotic / coronary artery calcification disease. Gall bladder hyperdensity which could represent sludge, cholelithiasis. SEPSIS Sepsis Screen Date sepsis recognized/suspect: Nov 08, 2024 Time Sepsis recognized/suspect: 1041 Recent Procedure: No On Antibiotic Therapy: No Respiratory Rate >20: No Heart Rate >90: No Temp<36 C (96.8 F) or >38.3 C: No SBP <90 or MAP <65 mmHG: No New Acute Mental Status Change: No Is the patient on CPAP, BIPAP,: No Physician Orders Electrocardigram (11/08/24 10:39) Ct Ab Pel Wo Con-No Oral Or Iv (11/08/24 11:10) Blood Culture (11/08/24 11:10) Clostridium Difficile Toxin (11/08/24 11:57) Admit (11/08/24 16:09) Allergies (11/08/24 16:09) Code Status (11/08/24 16:09) Hydrocodone-Acet 5/325mg Tab ([place] 5/32 (11/08/24 16:15) Ondansetron Hcl (Zofran) (11/08/24 16:15) Complete Blood Count (11/09/24 04:00) Comprehensive Metabolic Panel (11/09/24 04:00) Cardiac Diet-2gna,Lofat,Lochol (11/08/24 Dinner) Acetaminophen Tablet (Tylenol Tablet) (11/08/24 16:15) Metronidazole 500mg/100ml (Flagyl 500mg/ (11/08/24 22:00) Amiodarone Tablet (Cordarone Tablet) (11/09/24 10:00) Apixaban (Eliquis) (11/08/24 22:00) Atorvastatin (Lipitor) (11/08/24 22:00) Diltiazem Immediate Releas Tab (Cardizem (11/09/24 10:00) Gabapentin Capsule (Neurontin Capsule) (11/08/24 22:00) Lisinopril Tablet (Zestril Tablet) (11/09/24 10:00) (Nf) Cholecalciferol (Vitamin D) (11/09/24 10:00) (Nf) Cholecalciferol (Vitamin D3) (11/09/24 10:00) (Nf) Fenofibrate (11/09/24 10:00) (Nf) Levothyroxine Sodium (11/09/24 07:00) (Nf) Rosuvastatin Calcium (Crestor) (11/09/24 10:00) (Nf) Linaclotide Base (Linzess) (11/09/24 10:00) Vital Signs Date Time Temp Pulse Resp B/P (MAP) Pulse Ox O2 Delivery O2 Flow Rate FiO2 11/08/24 10:49 58 11/08/24 10:40 98.2 66 18 123/66 97 98.2 Laboratory Tests Test 11/08/24 11:29 Lactic Acid Level 0.7 mmol/L (0.4-2.0) White Blood Count 8.3 10^3/uL (4.4-10.8) Assessment/Plan Assessment/Plan Assessment Intractable left upper flank pain with nausea and vomiting likely due to colitis Cholelithiasis Tobacco use History of AFib History of diabetes History of hyperlipidemia History of hypertension History of thyroid disease History of UTIs History of hysterectomy History of bilateral carpal tunnel History of triggers fingers History of bilateral wrist surgery Plan Admit to [facility] IV antibiotics-Flagyl Antiemetics Pain management NS 2 L given ED C diff stool Troponin noted to have negative x2 Lactic level Blood cultures CT abdomen and pelvis noted ECA Lipase EKG Diet Home medications reconciled DVT prophylaxis-patient on Eliquis PUD prophylaxis-PPIs Discussed plan of care with patient and nurse Counseled patient on cessation of tobacco use [id number] Behavior change smoking greater than 10 minutes about use of other options also gave option of nicotine patch [id number] Preventive counseling healthy eating habits, physical activity, and regular checkups Plan discussed with: Patient My Orders Orders - TIANNA BLANKENSHIP [employer] Procedure Category Date Status Time Admit ADMIT 11/08/24 Transmitted 16:09 Allergies ASHA 11/08/24 In Process 16:09 Code Status CODE 11/08/24 Transmitted 16:09 Hydrocodone-Acet PHA 11/08/24 Logged 5/325mg Tab ([place] 16:15 Ondansetron Hcl PHA 11/08/24 Logged (Zofran) 16:15 Complete Blood Count LAB 11/09/24 Verified 04:00 Comprehensive LAB 11/09/24 Verified Metabolic Panel 04:00 Cardiac DIET 11/08/24 Transmitted Diet-2gna,Lofat,Lochol Dinner Acetaminophen Tablet PHA 11/08/24 Logged (Tylenol Tablet) 16:15 Metronidazole PHA 11/08/24 Logged 500mg/100ml (Flagyl 22:00 Amiodarone Tablet PHA 11/09/24 Transmitted (Cordarone Tablet) 10:00 Apixaban (Eliquis) PHA 11/08/24 Transmitted 22:00 Atorvastatin (Lipitor) PHA 11/08/24 Transmitted 22:00 Diltiazem Immediate PHA 11/09/24 Transmitted Releas Tab (Cardizem 10:00 Gabapentin Capsule PHA 11/08/24 Transmitted (Neurontin Capsule) 22:00 Lisinopril Tablet PHA 11/09/24 Transmitted (Zestril Tablet) 10:00 (Nf) Cholecalciferol PHA 11/09/24 Transmitted (Vitamin D) 10:00 (Nf) Cholecalciferol PHA 11/09/24 Transmitted (Vitamin D3) 10:00 (Nf) Fenofibrate PHA 11/09/24 Transmitted 10:00 (Nf) Levothyroxine PHA 11/09/24 Transmitted Sodium 07:00 (Nf) Rosuvastatin PHA 11/09/24 Transmitted Calcium (Crestor) 10:00 (Nf) Linaclotide Base PHA 11/09/24 Verified (Linzess) 10:00 Date of Service: Nov 08, 2024 Billing Provider: TIANNA BLANKENSHIP Common Visit Codes: 33682-[id number] INP/OBS CARE (HIGH) Secondary Visit Codes: [id number] COUNSELING IND, [id number] CHNG SMOKING >10MIN TIANNA BLANKENSHIP Nov 08, 2024 16:39
[2024-11-08] MEDS ORDERED: HYDROmorphone HCL 2 MG/ML VL/or syr IV PRN (17:00)
[2024-11-08] MEDS: SODIUM CHLORIDE 0.9% 2,000 ML IV ONE (20:37)
[2024-11-08] MEDS: ONDANSETRON HCL 4 MG/2 ML VIAL IV ONE (20:53)
[2024-11-08] MEDS: cefTRIAXone 1GM/50ML D5W 50 ML IV SCH (21:07)
[2024-11-08] MEDS: ATORVASTATIN 20 MG TAB PO SCH (22:00)
[2024-11-08 23:34] VITALS: PULSE 62; RESP 18; O2SAT 95
[2024-11-09 04:21] VITALS: BP 109/72; PULSE 59; RESP 18; TEMP 99; O2SAT 99
[2024-11-09] MEDS: GABAPENTIN 300 MG CAP PO SCH (06:00)
[2024-11-09 07:26] LABS: Nucleated Red Blood Cells % 0.0 %
[2024-11-09 07:29] LABS: Hematocrit 33.2 % (36.0-46.0); Hemoglobin 11.2 g/dL (12.2-16.2); Mean Corpuscular Hemoglobin 26.9 pg (28.0-32.0); Mean Corpuscular Volume 79.6 fL (80.0-100.0)
[2024-11-09 07:49] LABS: Alanine Aminotransferase 12 U/L (7-40); Albumin 4.3 g/dL (3.2-4.8); Alkaline Phosphatase 62 U/L (46-116); Anion Gap 6 (5-15); BUN/Creatinine Ratio 6.7 (10.0-20.0); Bilirubin, Total 0.3 mg/dL (0.2-1.0); Calcium 9.3 mg/dL (8.7-10.4); Carbon Dioxide 22 mmol/L (20-31); Glucose 88 mg/dL (74-106); Potassium 3.8 mmol/L (3.5-5.1); Sodium 140 mmol/L (136-145); Total Protein 6.2 g/dL (5.7-8.2)
[2024-11-09 07:58] LABS: Blood Urea Nitrogen 5 mg/dL (9-23); Chloride 112 mmol/L (98-107)
[2024-11-09] MEDS: LEVOTHYROXINE SODIUM 50 MCG TAB PO SCH (08:05)
[2024-11-09] MEDS: HYDROcodone-ACET 5/325MG TAB PO PRN (08:06)
[2024-11-09] MEDS: LINACLOTIDE BASE 145 MCG PO SCH (08:10)
[2024-11-09] MEDS: Fenofibrate 160MG TABLETS PO SCH (08:10)
[2024-11-09 09:00] VITALS: BP 121/70; PULSE 58; RESP 18; TEMP 99.1; O2SAT 93
[2024-11-09] MEDS: ATORVASTATIN 20 MG TAB PO SCH (09:37)
[2024-11-09] MEDS: AMIODARONE HCL 200 MG TAB PO SCH (09:38)
[2024-11-09] MEDS: CHOLECALCIFEROL (VITD3) 1,000UNIT=25mCg TAB PO SCH (09:38)
[2024-11-09] MEDS: APIXABAN 5 MG TAB PO SCH (09:39)
[2024-11-09] MEDS: LISINOPRIL 20 MG TAB PO SCH (10:00)
[2024-11-09] MEDS ORDERED: PATIENTS OWN MEDICATION (Cholecalciferol (Vitamin D3) 2,000 UNIT) OR SCH (10:00)
[2024-11-09] MEDS: ONDANSETRON HCL 4 MG/2 ML VIAL IV PRN (10:49)
--- NOTE | 2024-11-09 11:13 | ECG ---
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
[2024-11-09 13:00] VITALS: BP 139/71; PULSE 60; RESP 16; TEMP 99.5; O2SAT 92
[2024-11-09] MEDS: HYDROmorphone HCL 2 MG/ML VL/or syr IV PRN (14:56)
[2024-11-09 17:00] VITALS: BP 124/73; PULSE 59; RESP 16; TEMP 99.4; O2SAT 92
--- NOTE | 2024-11-09 17:57 | DVHPN2 ---
Subjective I am assuming the care of the patient from today onwards who was under the care of the [facility] Hospitalist team. Detailed sign out obtained. Chart reviewed. Patient is complaining of left-sided abdominal pain associated with the nausea and vomiting and diarrhea. 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 Medications Current Medications Medications Dose Ordered Sig/[place] Route Start Time Stop Time Status Last Admin Dose Admin Acetaminophen/ Hydrocodone Bitart 1 tab Q4HP PRN PO 11/08/24 16:15 11/09/24 08:06 1 TAB Ondansetron HCl 4 mg Q4HP PRN IV 11/08/24 16:15 11/09/24 10:49 4 MG Acetaminophen 650 mg Q6HP PRN PO 11/08/24 16:15 Amiodarone HCl 200 mg DAILY PO 11/09/24 10:00 11/09/24 09:38 200 MG Apixaban 5 mg BID PO 11/08/24 22:00 11/09/24 10:24 5 MG Atorvastatin Calcium 20 mg HS PO 11/08/24 22:00 Diltiazem HCl 120 mg DAILY PO 11/09/24 10:00 Gabapentin 300 mg TID PO 11/08/24 22:00 11/09/24 14:40 300 MG Lisinopril 20 mg DAILY PO 11/09/24 10:00 Cholecalciferol 1,000 unit DAILY PO 11/09/24 10:00 11/09/24 09:38 1,000 UNIT Patient Own Medication 1 tab DAILY PO 11/09/24 10:00 Levothyroxine Sodium 150 mcg QAM PO 11/09/24 07:00 11/09/24 08:05 150 MCG Atorvastatin Calcium 10 mg DAILY PO 11/09/24 10:00 11/09/24 09:37 10 MG Patient Own Medication 1 cap DAILY PO 11/09/24 10:00 Ceftriaxone Sodium 50 ml @ 100 mls/hr DAILY@09 IV 11/08/24 16:45 11/09/24 08:07 100 MLS/HR Hydromorphone HCl 0.5 mg Q4HPRN PRN IV 11/08/24 17:00 11/09/24 14:56 0.5 MG Hydromorphone HCl 1 mg Q4HPRN PRN IV 11/08/24 17:00 Metronidazole 100 ml @ 100 mls/hr Q8HR IV 11/09/24 06:00 11/09/24 14:40 100 MLS/HR Laboratory Results Laboratory Tests 11/09/24 06:49 Chemistry Test 11/09/24 06:49 Albumin 4.3 g/dL (3.2-4.8) Calcium Level 9.3 mg/dL (8.7-10.4) Total Protein 6.2 g/dL (5.7-8.2) LFT Test 11/09/24 06:49 Alanine Aminotransferase (ALT) 12 U/L (7-40) Alkaline Phosphatase 62 U/L (46-116) Aspartate Amino Transferase (AST) 17 U/L (13-40) Total Bilirubin 0.3 mg/dL (0.2-1.0) Urinalysis Test 11/08/24 11:26 Urine Color Light-yellow (Yellow) Urine Clarity Clear (Clear) Urine pH 6.5 (5.0-9.0) Urine Specific [place] 1.008 (1.001-1.035) Urine Protein Negative (Negative) Urine Ketones Negative (Negative) Urine Blood Negative /uL (Negative) Urine Nitrite Negative (Negative) Urine Bilirubin Negative (Negative) Urine Urobilinogen Normal mg/dL (Negative) Urine Leukocyte Esterase Trace /uL (Negative) Urine RBC None seen /hpf (0 - 4) Urine Microscopic WBC 1 /HPF (0-5) Urine Squamous Epithelial Cells Few /hpf (<5) Urine Bacteria Few /hpf (None Seen) H Urine Glucose Normal mg/dL (Normal) Microbiology Microbiology Date/Time Source Procedure Growth Status 11/08/24 11:29 Blood Blood Culture - Preliminary NO GROWTH AFTER 24 HOURS OF INCUBATION. Resulted Assessment/Plan Assessment/Plan 59-year-old female with a known history of hypertension, chronic AFib, dyslipidemia, hypothyroidism, peripheral neuropathy initially presented to the hospital with a left upper abdominal pain associated with the nausea and vomiting and diarrhea found to have 1. Diarrhea rule out C diff 2. Colitis likely inflammatory rule out infectious colitis 3. Chronic AFib currently in sinus rhythm on Eliquis 4. Hypertension 5. Dyslipidemia 6. Hypothyroidism 7. Chronic tobacco use disorder 8. Morbid obesity classI -IV antibiotics, check stool for C diff, GI consultation. Plan discussed with: Patient Date of Service: Nov 09, 2024 Billing Provider: SHELDON ARCHULETA MD Common Visit Codes: [id number] INP/OBS CARE(MOD) SHELDON ARCHULETA MD Nov 09, 2024 17:57
== END 2024-11-10 00:16 | disposition left against medical advice (07) | DRG 248 ==
LOC: ER 10:34 → OVERFLOW 16:09
DX: A04.9 Bacterial intestinal infection, unspecified (principal); I48.20 Chronic atrial fibrillation, unspecified; E03.9 Hypothyroidism, unspecified; G62.9 Polyneuropathy, unspecified; E11.9 Type 2 diabetes mellitus without complications; K80.20 Calculus of gallbladder without cholecystitis without obstruction; E66.01 Morbid (severe) obesity due to excess calories; E78.5 Hyperlipidemia, unspecified; I10 Essential (primary) hypertension; I25.10 Atherosclerotic heart disease of native coronary artery without angina pectoris; N39.0 Urinary tract infection, site not specified; F17.210 Nicotine dependence, cigarettes, uncomplicated; Z90.710 Acquired absence of both cervix and uterus; Z88.5 Allergy status to narcotic agent; Z79.2 Long term (current) use of antibiotics; Z79.899 Other long term (current) drug therapy; Z68.30 Body mass index [BMI] 30.0-30.9, adult
CPT/HCPCS: 36415; 74176; 80053; 81001; 83605; 83690; 84484; 85025; 87040; 93005; 96361; 96374; G0378; J2405; J3490